=== PATIENT | male | born 1945 | race Caucasian/White ===

== ENCOUNTER 2018-02-27 15:01 | Emergency (ER) | payer MEDICARE, BC ==
[2018-02-27] MEDS: IPRATROPIUM 0.5MG/ALBUTEROL 2.5MG INH SOL UD 3ML (DUONEB)(J7620) NEB (16:29)
[2018-02-27] MEDS: ASPIRIN 81 MG CHEW TABLET PO (16:35)
[2018-02-27 16:40] LABS: BASO % 0.3 % (0.0-1.0); EOS % 0.5 % (0.0-3.0); HEMATOCRIT 32.1 % (42.0-52.0); IMMATURE GRANULOCYTE % 0.3 % (0-3.0); LYMPH # 0.7 10^3/uL (1.5-4.5); LYMPH % 16.8 % (24.0-44.0); MEAN CORPUSCULAR HEMOGLOBIN 35.7 pg (27.0-33.0); MEAN CORPUSCULAR HGB CONC 34.3 g/dl (32.0-36.5); MEAN CORPUSCULAR VOLUME 104.2 fl (80.0-96.0); MONO # 0.5 10^3/uL (0.0-0.8); NEUTROPHILS # 2.6 10^3/uL (1.8-7.7); NEUTROPHILS % 68.1 % (36.0-66.0); RED BLOOD COUNT 3.08 10^6/uL (4.30-6.10); RED CELL DISTRIBUTION WIDTH 15.5 % (11.5-14.5); WHITE BLOOD COUNT 3.9 10^3/uL (4.0-10.0)
[2018-02-27 16:59] LABS: ANION GAP 8 MEQ/L (8-16); BLOOD UREA NITROGEN 19 MG/DL (7-18); CARBON DIOXIDE LEVEL 32 MEQ/L (21-32); CHLORIDE LEVEL 97 MEQ/L (98-107); CPK CREATINE PHOSPHOKINASE 153 U/L (39-308); CREATININE FOR GFR 1.34 MG/DL (0.70-1.30); GLOMERULAR FILTRATION RATE 55.9 (>42); GLUCOSE, FASTING 309 MG/DL (70-100); POTASSIUM SERUM 3.7 MEQ/L (3.5-5.1); SODIUM LEVEL 137 MEQ/L (136-145); TROPONIN I 0.09 NG/ML (< 0.10)
[2018-02-27 17:00] LABS: CK-MB VALUE MASS 1.7 NG/ML (<3.6); MB/CK RELATIVE INDEX 1.11 (< OR =4)
[2018-02-27 17:10] LABS: IMMATURE PLATELET FRACTION % 5.2 % (0.0-10.9); PLATELET COUNT, AUTOMATED 45 10^3/uL (150-450)
== END 2018-02-27 17:41 | disposition home or self-care (01) ==
LOC: M ED 15:01
DX: J44.1 Chronic obstructive pulmonary disease with (acute) exacerbation (principal); I48.91 Unspecified atrial fibrillation; E11.9 Type 2 diabetes mellitus without complications; I10 Essential (primary) hypertension; Z87.891 Personal history of nicotine dependence; Z79.899 Other long term (current) drug therapy; Z79.51 Long term (current) use of inhaled steroids; Z79.4 Long term (current) use of insulin; Z79.01 Long term (current) use of anticoagulants
CPT/HCPCS: 71045

== ENCOUNTER 2021-03-12 07:05 | Inpatient (IN) | payer MEDICARE ==
[~2021-03-12] VITALS: Ht 180.3 cm; Wt 114.4 kg
[2021-03-12] MEDS: NYSTATIN 100,000 UNITS/GM TOPICAL PWD 15 GM TOP SCH (02:00)
[~2021-03-12 07:05] MED LIST: CORE6.25 PO; ELIQ5TAB PO; FLOM0.4C39 PO; FOLI1TAB11 PO; INSUDET SC; LASI40TA9 PO; MULTCAP PO; SALMDISK INH; TIOT18INH INH; VITA80003 PO; VITAMIN B 1 PO
[2021-03-12 07:42] LABS: BASO % 0.1 % (0.0-1.0); EOS % 0.3 % (0.0-3.0); HEMATOCRIT 30.1 % (42.0-52.0); HEMOGLOBIN 9.8 g/dl (13.5-17.5); LYMPH # 0.4 10^3/uL (1.5-5.0); LYMPH % 4.7 % (24.0-44.0); MEAN CORPUSCULAR HEMOGLOBIN 36.3 pg (27.0-33.0); MEAN CORPUSCULAR HGB CONC 32.6 g/dl (32.0-36.5); MEAN CORPUSCULAR VOLUME 111.5 fl (80.0-96.0); MONO # 0.7 10^3/uL (0.0-0.8); MONO % 9.5 % (2.0-8.0); NEUTROPHILS # 6.4 10^3/uL (1.5-8.5); NEUTROPHILS % 84.7 % (36.0-66.0); WHITE BLOOD COUNT 7.6 10^3/uL (4.0-10.0)
[2021-03-12] MEDS ORDERED: ACETAMINOPHEN 325 MG TAB PO ONE ×2 (08:00→12:05)
[2021-03-12 08:06] LABS: PLATELET COUNT, AUTOMATED 52 10^3/uL (150-450)
[2021-03-12 08:18] LABS: ALBUMIN 3.4 GM/DL (3.2-5.2); BILIRUBIN,DIRECT 0.4 MG/DL (0.0-0.2); BILIRUBIN,TOTAL 0.9 MG/DL (0.2-1.0); CK-MB VALUE MASS 6.9 NG/ML (<3.6); MB/CK RELATIVE INDEX 0.69 (< OR =4); THYROID STIMULATING HORMONE 0.904 uIU/ML (0.358-3.740); TOTAL PROTEIN 6.9 GM/DL (6.4-8.2); TROPONIN I 0.16 NG/ML (< 0.10)
--- NOTE | 2021-03-12 08:22 | REP ---
INDICATION: TRAUMA. COMPARISON: AP 02/27/2018. TECHNIQUE: AP portable upright FINDINGS: Lungs are less well inflated than the prior exam. There is now a multilead pacer device with leads in the right atrium, right ventricle and an epicardial lead. Cardiac silhouette enlarged but further exaggerated by degree of inflation lordotic projection. Some venous hypertension without leslie edema. No definite infiltrate or effusion although the right CP angle is excluded. Some rotation toward the right side limits evaluation of the mediastinum. Some degenerative changes throughout the spine. IMPRESSION: 1. Multilead pacer as described with cardiac silhouette enlarged and some venous hypertension without leslie edema definite effusion or infiltrate. Limited portable exam as described above. <Electronically signed by Basilio Avila > 03/12/21 0811
--- NOTE | 2021-03-12 08:22 | ECGEPIP ---
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
[2021-03-12 09:14] LABS: RSV AMPLIFICATION NEGATIVE (NEGATIVE)
--- NOTE | 2021-03-12 10:36 | REP ---
INDICATION: FUO. COMPARISON: AP chest 03/12/2021, 02/27/2018. TECHNIQUE: Noncontrast CT through the chest with coronal and sagittal reconstructions. FINDINGS: Exam somewhat limited with patient inability to follow instructions and breath hold. Lung [place]jo are well inflated. There is dependent atelectasis deep sulcus right greater than left lower lobe. Some mild the pleural thickening posteriorly in the deep sulcus on the right no gross effusion. Some minor linear atelectatic change in the left base just above the diaphragm. There is a patchy a zone of the infiltrate in left mid lung zone not visible on the portable chest this date even in retrospect. It has a maximum diameter of 19 mm. There is a subtle patchy density measuring about 9 mm in the right upper lobe subpleural region best seen on image 35 another 8 mm focus on image 44 in the right lobe similar patchy density no pleural based mass noted the heart is enlarged with left atrial and ventricular enlargement. There has been aortic valve surgery and a multilead pacer leads in the right atrium right ventricle and epicardial lead are noted as on radiograph some mild dilatation of the ascending aorta up to 4.2 cm not considered aneurysmal. Atherosclerotic calcifications of the arch and proximal great vessels lobes well as descending aorta noted without aneurysm. There is a small left-sided pericardial effusion up to [address] attenuation 10 - 13 HU. Bone windows show marginal osteophytes throughout thoracic spine with some mild kyphosis upper thoracic region endplate depression Schmorl's node at T11 superiorly. No definite acute bony finding in the spine. The cervicothoracic junction and lower thoracic vertebral levels also show spondylosis. The visualized ribs sternum, manubrium, medial clavicles, portion of scapula visualized and the left humeral head show degenerative changes but no destructive lesion or fracture. No definite hiatal hernia. Chest wall soft tissues unremarkable. Please see CT abdomen for discussion of findings in the upper abdomen on this study. IMPRESSION: 1. Cardiomegaly with left atrial and ventricular enlargement, a small pericardial effusion up to 10 mm in thickness and aortic valve surgery with the mild the dilatation of the ascending aorta up to 4.2 cm AP diameter. Some atherosclerotic calcifications aorta at the arch and descending portion without aneurysm. 2. Multilead pacer with leads in the right atrium, right ventricle and an epicardial lead. No pathologic sized mediastinal hilar axillary or supraclavicular lymphadenopathy. 3. Dependent atelectatic changes and some pleural thickening subpleural atelectasis deep sulcus right lower lobe and with patchy densities or infiltrates in the left upper lobe up to 19 mm size and at least 2 in the right upper lobe at 9 and 6 mm respectively. These should be followed. 4. Diffuse degenerative changes in the spine without acute compression deformity. No destructive lesions in the visualized bony chest. <Electronically signed by Basilio Avila > 03/12/21 [id number]
--- NOTE | 2021-03-12 10:50 | REP ---
INDICATION: FUO, Hx of psoas abscess 2018. COMPARISON: CT chest this date TECHNIQUE: Noncontrast abdominopelvic CT with coronal and sagittal reconstructions. FINDINGS: CT abdomen: There is no hiatal hernia. Stomach gas filled without wall thickening or mass. There is splenomegaly with spleen measuring 16.7 x 12.7 x 5.6 cm giving a splenic index of 1181. No focal splenic lesion. There is also mildly enlarged measuring 19.5 cm in vertical diameter midclavicular line. There is some lobulated contour and prominence of the left hepatic lobe. Attenuation is homogeneous. There dependent calcified stones and sludge in the gallbladder. No intra or extrahepatic biliary dilatation. The pancreas grossly intact. Adrenal glands grossly normal. There is some sinus lipomatosis in the kidneys. There is a lower pole calcification in a pyramid in the right kidney about 4 mm. No definite hydronephrosis, hydroureter or ureteral stone identified. Small bowel loops grossly intact without dilatation or inflammatory change. There is atherosclerotic calcification of the left colon without signs of diverticulitis. Transverse and proximal left colon are collapsed and wall thickness difficult to evaluate, cannot see definite signs of colitis. Lung window review of all CT slices shows no perforation or free air in the abdomen or pelvis. Appendix is seen and normal. The aorta has atherosclerotic calcifications without aneurysm. There is no pathologic sized periaortic, other retroperitoneal or mesenteric lymphadenopathy nodes in the 3-6 mm range are seen but scattered. No masses. No ascites. The bone windows show prior lumbar fusion with pedicle screws at L4-L5 and disc fusion at L3-4 complete disc space narrowing at the L4-5 and L5-S1 less at levels above but with diffuse marginal osteophytes throughout the lower thoracic and lumbar region. Patient has had a total left hip arthroplasty with alignment of the components in relationship to each other and the [place] bone intact. Right hip with degenerative changes but no fracture sacrum without fracture with degenerative the changes at the SI joints sacral ala, iliac bones, acetabulae and ischia without acute fracture. CT pelvis atherosclerotic calcifications in the iliac vessels into the common femoral arteries noted no ventral or inguinal hernia nor pathologic sized inguinal adenopathy. Prostate with a few calcifications from prior inflammatory disease distal left colon with diverticulosis but no diverticulitis. Appear to be some minor inflammatory adjacent to the proximal sigmoid near its junction of the distal left colon a could reflect some mild diverticulitis. No evidence for perforation or abscess. No pelvic free fluid. Bladder without stone mass or wall thickening. Somewhat limited evaluation due to the metallic artifact from hip arthroplasty IMPRESSION: 1. Inflammatory changes in the pericolonic fat adjacent to the proximal sigmoid near the junction with distal left colon that may reflect diverticulitis no diverticular abscess perforation ascites or free air. Proximal and mid left colon without inflammatory changes but with some diverticulosis. 2. Hepatosplenomegaly as described, no focal lesion. 3. Dependent calcified stones and sludge in the gallbladder without intra or extrahepatic biliary dilatation. Some respiratory motion blur limits evaluation of some of organs but small bowel loops, pancreas and stomach unremarkable. Adrenal glands intact. 4. Kidneys with a solitary stone in the lower pole pyramid on the right with no hydronephrosis or renal mass. Atherosclerotic calcifications aorta without aneurysm. Prior lumbar fusion at L4-5. <Electronically signed by Basilio Avila > 03/12/21 104
[2021-03-12] MEDS ORDERED: FINA5TAB2 PO (10:53)
[2021-03-12] MEDS ORDERED: ENTR1TAB7 PO (10:53)
[2021-03-12] MEDS ORDERED: CARDCAP3 PO (10:53)
[2021-03-12] MEDS ORDERED: METO1TAB32 PO (10:53)
[2021-03-12] MEDS ORDERED: KLOR20TA42 PO (10:53)
[2021-03-12] MEDS ORDERED: BUDE10.2 INH (10:53)
[2021-03-12] MEDS ORDERED: ACET-683 PO (10:53)
[2021-03-12] MEDS ORDERED: ASPI81CH33 PO (10:53)
[2021-03-12] MEDS ORDERED: ALLO100T PO (10:53)
[2021-03-12] MEDS ORDERED: METO25TA PO (10:53)
[2021-03-12] MEDS ORDERED: PROAAER10 INH (10:54)
[2021-03-12] MEDS ORDERED: SIME80CH5 PO (10:54)
[2021-03-12] MEDS ORDERED: TERA10CA3 PO (10:54)
[2021-03-12] MEDS ORDERED: IPRA2IN NEB (10:54)
[2021-03-12] MEDS ORDERED: MIRT1TAB16 PO (10:54)
[2021-03-12] MEDS ORDERED: TRAM50TA2 PO (10:54)
[2021-03-12 12:23] LABS: C REACTIVE PROTEIN QUANTITATIV 1.98 MG/DL (0.00-0.30)
[2021-03-12] MEDS ORDERED: metroNIDAZOLE 500 MG in IV 1 EA IV ONE (13:25)
[2021-03-12] MEDS ORDERED: CEFEPIME HCL 2 GM in D5W MINI-BAG PLUS 50 ML IV ONE (13:25)
--- NOTE | 2021-03-12 14:22 | ECHO ---
ECHOCARDIOGRAM DATE OF PROCEDURE: 03/12/2021 Age: 75 Gender: Male Height: 180 cm. Weight: 114 kg. REFERRING PHYSICIAN: Greg Cruz M.D. INDICATION: Suspicion for endocarditis; history of aortic valve replacement. MEASUREMENTS: IV 1.1 cm LV 5.1 cm LVPW 1.2 cm LA 3.6 cm Left atrium volume index 44 ml/m2 IVC 2.3 cm FINDINGS: The study is of fair technical quality with fair visualization. I am not certain what is the underlying rhythm. It does not appear to be sinus, but it was completely regular with heart rate 81 beats per minute throughout the whole study. Left ventricle is normal size. There is septal wall motion abnormality. I suspect due to underlying pacing. But overall ejection fraction is preserved and I estimate it around 60-65%. Right ventricle appears normal size. Left atrium is severely enlarged, right atrium is at least mildly enlarged. Aortic valve is bioprosthetic and was poorly seen. There are degenerative abnormalities of mitral valve with mitral annular calcifications, but mobility is preserved. Trace insufficiency is seen by color flow imaging. There is also trace tricuspid insufficiency. Pulmonic valve was not well seen. No pericardial effusion is noted. Inferior vena cava is dilated. There is no appreciable collapse with inspiration indicative of very high central venous pressure. Aortic root is normal. Aortic arch and abdominal aorta were not well seen. There is an echo artifact in right-sided heart chambers corresponding to pacemaker lead. DOPPLER EVALUATION: There is no significant aortic stenosis (mean gradient 13 mmHg) and no insufficiency of the valve. Mitral valve is functionally competent. Trace TR is seen, calculated pulmonary artery pressure is 30-35 mmHg corresponding to mild pulmonary hypertension. Evaluation of diastolic function is inconclusive due to absence of sinus rhythm. CONCLUSIONS: 1. Study is of fair technical quality. Uncertain atrial rhythm with ventricular pacing. 2. Normal left ventricular (LV) size with mild left ventricular hypertrophy (LVH) and preserved LV systolic function. Septal wall motion abnormality likely due to underlying pacing. 3. Bioprosthetic valve in aortic position with no visible vegetation, trivial stenosis (mean gradient 13 mmHg) and no insufficiency. 4. No additional significant valvular disease. 5. High central venous pressure and at least mild pulmonary hypertension. 6. Pacemaker by artifact apparent in right-sided heart chambers. COMMENTS: Results of the study were discussed with Dr. Cruz. TICO
--- NOTE | 2021-03-12 15:26 | HPEPDOC ---
General Date of Admission 03/12/21 Date of Service: Mar 12, 2021 Chief Complaint The patient is a 75-year-old male admitted with a reason for visit of Weakness. Source: Patient, Family Exam Limitations: No limitations History of Present Illness Patient is 75 years old male with past medical history of hypertension, aortic valve replacement, type 2 diabetes, thrombocytopenia, atrial fibrillation, pacemaker presented to hospital with fever and chills. According to his patient developed generalized weakness with fever yesterday night associated with rigors and abdominal pain. Patient reported abdominal pain in the left lower quadrant. He denies any diarrhea or dysuria. Patient did not have nausea or vomiting. In ER patient was found fever over 101.2 elevated lactic acid of 2.8, leukocytes count 7.6, sedimentation rate of 58, platelet count of 52, CPK 999, creatinine 3, troponin 0.16, BNP 1433. Echo was done and showed ejection fraction of 60 to 65%, no vegetations, high central venous pressure. CT chest showed Cardiomegaly with left atrial and ventricular enlargement, a small pericardial effusion up to 10 mm in thickness and aortic valve surgery with the mild the dilatation of the ascending aorta up to 4.2 cm AP diameter, CT abdomen pelvis showed Inflammatory changes in the pericolonic fat adjacent to the proximal sigmoid near the junction with distal left colon that may reflect diverticulitis no diverticular abscess perforation ascites or free air Home Medications Scheduled Allopurinol (Allopurinol) 100 Mg Tablet, 100 MG PO DAILY, (Reported) Apixaban (Eliquis) 2.5 Mg Tablet, 2.5 MG PO BID, (Reported) Budesonide/Glycopyr/Formoterol (Breztri Aerosphere Inhaler) 160 Mcg-9 Mcg-4.8 Mcg/Actuation Hfa.aer.ad, 1 PUFF INH BID, (Reported) Finasteride (Finasteride) 5 Mg Tablet, 5 MG PO DAILY, (Reported) Folic Acid (Folic Acid) 1 Mg Tab, 1 MG PO DAILY, (Reported) Furosemide (Furosemide) 80 Mg Tablet, 80 MG PO BID, (Reported) Gabapentin (Gabapentin) 400 Mg Capsule, 400 MG PO BID, (Reported) Metolazone (Metolazone) 2.5 Mg Tablet, 2.5 MG PO 1XWK, (Reported) FRIDAYS Metoprolol Succinate (Metoprolol Succinate) 25 Mg Tab.er.24h, 75 MG PO DAILY, (Reported) Mirtazapine (Mirtazapine) 15 Mg Tab.rapdis, 15 MG PO QHS, (Reported) Mv-Min/Folic/Vit K/Lycop/Coq10 (Daily Multivitamin Capsule) 1 Each Capsule, 1 CAP PO DAILY, (Reported) Potassium Chloride (Potassium Chloride) 20 Meq Tab.er.prt, 10 MEQ PO DAILY, (Reported) Sacubitril/Valsartan (Entresto 49 mg-51 mg Tablet) 1 Each Tablet, 1 TAB PO BID, (Reported) Terazosin Hcl (Terazosin HCl) 10 Mg Capsule, 20 MG PO DAILY, (Reported) Scheduled PRN Acetaminophen (Acetaminophen) 500 Mg Tablet, 1,000 MG PO TID PRN for PAIN LEVEL 1-6, (Reported) Albuterol Sulfate (Proair Hfa) 8.5 Gm Hfa.aer.ad, 2 PUFF INH Q4H PRN for SOB/WHEEZING, (Reported) Ipratropium/Albuterol Sulfate (Iprat-Albut 0.5-3(2.5) mg/3 ml) 3 Ml Ampul.neb, 1 VIAL NEB QID PRN for SOB/WHEEZING, (Reported) Simethicone (Simethicone) 80 Mg Tab.chew, 80 MG PO Q6H PRN for GAS PAIN, (Reported) Tramadol HCl (Tramadol HCl) 50 Mg Tablet, 50 MG PO BID PRN for PAIN LEVEL 5-10, (Reported) Allergies Coded Allergies: No Known Allergies (Unverified , 02/27/18) Past Medical History Medical History COPD with emphysema, hypertension, type 2 diabetes, thrombocytopenia, aortic valve replacement, atrial fibrillation, pacemaker placement, cirrhosis, cardiomyopathy, gout, nephrolithiasis, portal hypertension, spinal stenosis, splenomegaly, thoracic aortic aneurysm Surgical History Aortic valve replacement in 2013, pacemaker placement, hip joint replacement left, rotator cuff repair right Family History I personally reviewed family history and found not pertinent Social History * Smoker: Denies Alcohol: occationally Drugs: denies A-FIB/CHADSVASC A-FIB History Current/History of A-Fib/PAF?: Yes Current PO Anticoag Therapy: Yes Review of Systems Constitutional: Reports: Chills, Fever Eyes: Denies: Pain ENT: Denies: Head Aches Skin: Denies: Rash Pulmonary: Denies: Dyspnea Cardiovascular: Denies: Chest Pain Gastrointestinal: Reports: Abdominal Pain Genitourinary: Denies: Dysuria, Frequency Hematologic: Reports: Bruising Endocrine: Denies: Polydipsia Musculoskeletal: Denies: Neck Pain Neurological: Denies: Weakness Psych: Reports: Mood Normal Physical Examination General Exam: Positive: Alert, Cooperative Eye Exam: Positive: PERRLA ENT Exam: Positive: Atraumatic Neck Exam: Positive: Supple, JVD Chest Exam: Positive: Diminished Heart Exam: Positive: Irregular Rhythm Telemetry: Positive: Atrial fibrillation Abdomen Exam: Positive: Tenderness (Left lower quadrant) Extremity Exam: Positive: Edema (+2); Negative: Clubbing Skin Exam: Positive: Nl turgor and temperature Neuro Exam: Positive: Cranial Nerves 3-12 NL Psych Exam: Positive: Mental status NL Vital Signs Vital Signs Date Time Temp Pulse Resp B/P (MAP) Pulse Ox O2 Delivery O2 Flow Rate FiO2 03/12/21 13:26 99.9 03/12/21 13:20 80 96 Room Air 03/12/21 13:15 113/58 (76) 03/12/21 11:50 24 2.0 Laboratory Data Labs 24H Laboratory Tests 2 03/12/21 07:23: Erythrocyte Sedimentation Rate 58H 03/12/21 07:26: Immature Granulocyte % (Auto) 0.7, Neutrophils (%) (Auto) 84.7H, Lymphocytes (%) (Auto) 4.7L, Monocytes (%) (Auto) 9.5H, Eosinophils (%) (Auto) 0.3, Basophils (%) (Auto) 0.1, Neutrophils # (Auto) 6.4, Lymphocytes # (Auto) 0.4L, Monocytes # (Auto) 0.7, Eosinophils # (Auto) 0.0, Basophils # (Auto) 0.0, Nucleated Red Blood Cells % (auto) 0.0, Immature Platelet Fraction 4.7, Lactic Acid Level 2.8*H, Total Bilirubin 0.9, Direct Bilirubin 0.4H, Aspartate Amino Transf (AST/SGOT) 44H, Alanine Aminotransferase (ALT/SGPT) 35, Alkaline Phosphatase 71, Total Creatine Kinase 999H, Creatine Kinase MB 6.9H, Creatine Kinase MB Relative Index 0.69, Troponin I 0.16H, C-Reactive Protein, Quantitative 1.98H, WQ-Tmd-W-Type Natriuretic Peptide 1433H, Total Protein 6.9, Albumin 3.4, Albumin/Globulin Ratio 1.0, Lipase 120, Thyroid Stimulating Hormone (TSH) 0.904 03/12/21 07:36: POC Glucose (Misc Panel) 291H, POC Sodium (Misc Panel) 138, POC Potassium (Misc Panel) 5.0, POC Chloride (Misc Panel) 100, POC Total CO2 (Misc Panel) 24.0, POC Blood Urea Nitrogen (Misc Panel 81H, POC Ionized Calcium (Misc Panel) 5.0, POC Creatinine (Misc Panel) 3.0H, POC Hematocrit (Misc Panel) 30.0L 03/12/21 08:13: Urine Color YELLOW, Urine Appearance CLEAR, Urine pH 5.0, Urine Specific [place] 1.014, Urine Protein NEGATIVE, Urine Glucose (UA) 1+H, Urine Ketones NEGATIVE, Urine Blood 2+H, Urine Nitrite NEGATIVE, Urine Bilirubin NEGATIVE, Urine Urobilinogen 0.2, Urine Leukocyte Esterase NEGATIVE, Urine WBC (Auto) 0, Urine RBC (Auto) 4H, Urine Hyaline Casts (Auto) 6, Urine Bacteria (Auto) 1+H, Urine Squamous Epithelial Cells 0, Urine Sperm (Auto) , Coronavirus (COVID-19)(PCR) NEGATIVE, Influenza Type A (RT-PCR) NEGATIVE, Influenza Type B (RT-PCR) NEGATIVE, Respiratory Syncytial Virus (PCR) NEGATIVE CBC/BMP Laboratory Tests 03/12/21 07:26 Microbiology Microbiology 03/12/21 Blood Culture, Received Pending 03/12/21 Blood Culture, Received Pending Assessment/Plan Patient is 75 years old male with past medical history of hypertension, aortic valve replacement, type 2 diabetes, thrombocytopenia, atrial fibrillation, pacemaker presented to hospital with fever and chills. According to his patient developed generalized weakness with fever yesterday night associated with rigors and abdominal pain. Patient reported abdominal pain in the left lower quadrant. He denies any diarrhea or dysuria. Patient did not have nausea or vomiting. In ER patient was found fever over 101.2 elevated lactic acid of 2.8, leukocytes count 7.6, sedimentation rate of 58, platelet count of 52, CPK 999, creatinine 3, troponin 0.16, BNP 1433. Echo was done and showed ejection fraction of 60 to 65%, no vegetations, high central venous pressure. CT chest showed Cardiomegaly with left atrial and ventricular enlargement, a small pericardial effusion up to 10 mm in thickness and aortic valve surgery with the mild the dilatation of the ascending aorta up to 4.2 cm AP diameter, CT abdomen pelvis showed Inflammatory changes in the pericolonic fat adjacent to the proximal sigmoid near the junction with distal left colon that may reflect diverticulitis no diverticular abscess perforation ascites or free air Problems (1) Acute diverticulitis Status: Acute Problem Text: Patient has fever, left lower quadrant abdominal pain, CT shows picture consistent with acute diverticulitis Zosyn IV Pain management Clear liquid diet for now (2) COPD (chronic obstructive pulmonary disease) Status: Chronic Problem Text: Not in acute exacerbation Continue inhalers (3) Thrombocytopenia Status: Chronic Problem Text: Most likely secondary to liver cirrhosis Continue to monitor (4) Cirrhosis of liver Status: Chronic Problem Text: Follow-up with GI team in the outpatient settings (5) Acute diastolic CHF (congestive heart failure) Status: Acute Problem Text: BNP elevated, CT shows cardiomegaly, on the physical exam patient volume overloaded with lower extremity edema Echo showed Normal left ventricular (LV) size with mild left ventricular hypertrophy (LVH) and preserved LV systolic function. Septal wall motion abnormality likely due to underlying pacing. overall ejection fraction is preserved and it around 60-65%. IV Lasix I's and O's (6) Thoracic aortic aneurysm Status: Chronic Problem Text: Follow-up with ultrasound every 6 months (7) Type 2 diabetes mellitus Status: Chronic Problem Text: Insulin sliding scale We will check HbA1c Plan / VTE VTE Prophylaxis Ordered?: Yes REGLA JONES DO Mar 12, 2021 15:26
[2021-03-12] MEDS ORDERED: PIPERACILLIN/TAZOBACTAM SOD 3.375 GM in D5W MINI-BAG PLUS 50 ML IV SCH (15:30)
[2021-03-12] MEDS ORDERED: DEXTROSE 50% 50 ML SYRINGE IV PRN (15:45)
[2021-03-12] MEDS ORDERED: GLUCOSE 4GM CHEW TABLET PO PRN (15:45)
[2021-03-12] MEDS ORDERED: GLUCAGON INJ 1MG VIAL SC PRN (15:45)
[2021-03-12] MEDS ORDERED: FURO80TA2 PO (15:56)
[2021-03-12] MEDS ORDERED: BUDE10.7 INH (15:56)
[2021-03-12] MEDS ORDERED: IPRA0.00 NEB (15:56)
[2021-03-12] MEDS ORDERED: GABA-283 PO (15:56)
[2021-03-12] MEDS ORDERED: ELIQ2.5T PO (15:56)
[2021-03-12] MEDS ORDERED: MIRT1TAB15 PO (15:56)
[2021-03-12] MEDS ORDERED: POTA20TA6 PO (15:56)
[2021-03-12] MEDS ORDERED: ALBUTEROL 90 MCG/ACT 8GM HFA INHALER INH PRN (16:00)
[2021-03-12 16:28] LABS: HEMOGLOBIN A1c 7.1 %
[2021-03-12] MEDS: TERAZOSIN 5MG CAPSULE PO SCH (17:13)
[2021-03-12 17:55] VITALS: BP 116/57
[2021-03-12] MEDS: allopurinoL 100 MG TAB PO SCH (19:08)
[2021-03-12] MEDS: FOLIC ACID 1 MG TAB PO SCH (19:08)
[2021-03-12] MEDS: FINASTERIDE 5 MG TAB PO SCH (19:11)
[2021-03-12] MEDS: METOPROLOL SUCC *XL* 25MG TAB (TopROL *XL*) PO SCH (19:12)
[2021-03-12] MEDS: POTASSIUM CHLORIDE 10 MEQ SR TABLET PO SCH (19:13)
[2021-03-12] MEDS: HumaLOG INSULIN (NovoLOG) PER UNIT SC SCH ×2 (19:14→21:00)
[2021-03-12] MEDS: PIPERACILLIN/TAZOBACTAM SOD 3.375 GM in D5W MINI-BAG PLUS 50 ML IV SCH ×2 (19:15→23:31)
[2021-03-12] MEDS: ONDANSETRON 4MG/2ML VIAL IV PRN (19:47)
[2021-03-12] MEDS ORDERED: VANCOMYCIN HCL 1,000 MG, VIAL MATE ADAPTER 1 EACH in NS 250 ML IV ONE (20:30)
[2021-03-12 22:00] VITALS: BP 120/58
[2021-03-12] MEDS ORDERED: VANCOMYCIN HCL 1,000 MG, VIAL MATE ADAPTER 1 EACH in NS 250 ML IV SCH (22:00)
[2021-03-12] MEDS: ENTRESTO 49-51MG TABLET (SACUBITRIL/VALSARTAN) PO SCH (22:07)
[2021-03-12] MEDS: MIRTAZAPINE 15 MG TAB PO SCH (22:07)
[2021-03-12] MEDS: FUROSEMIDE 40MG/4ML VIAL (J1940) IV SCH (22:07)
[2021-03-12] MEDS: APIXABAN 2.5 MG TAB (ELIQUIS) PO SCH (22:08)
[2021-03-13] MEDS: ONDANSETRON 4MG/2ML VIAL IV PRN ×2 (00:37→08:05)
[2021-03-13] MEDS: ACETAMINOPHEN TAB 650MG DOSE (2X325MG) PO PRN ×2 (00:38→20:47)
[2021-03-13] MEDS ORDERED: METOCLOPRAMIDE INJ 10MG/2ML VIAL (J2765 PER 1) IV ONE (04:40)
[2021-03-13] MEDS: PIPERACILLIN/TAZOBACTAM SOD 3.375 GM in D5W MINI-BAG PLUS 50 ML IV SCH ×4 (05:25→23:28)
[2021-03-13 06:00] VITALS: BP 116/56
[2021-03-13 06:15] LABS: HEMOGLOBIN 9.5 g/dl (13.5-17.5); MEAN CORPUSCULAR HGB CONC 32.8 g/dl (32.0-36.5); MEAN CORPUSCULAR VOLUME 109.8 fl (80.0-96.0); RED BLOOD COUNT 2.64 10^6/uL (4.30-6.10); WHITE BLOOD COUNT 5.8 10^3/uL (4.0-10.0)
[2021-03-13 06:16] LABS: PLATELET COUNT, AUTOMATED 44 10^3/uL (150-450)
[2021-03-13 06:40] LABS: ALBUMIN 2.9 GM/DL (3.2-5.2); ALT/SGPT 81 U/L (12-78); BLOOD UREA NITROGEN 71 MG/DL (7-18); CALCIUM LEVEL 8.8 MG/DL (8.8-10.2); CARBON DIOXIDE LEVEL 27 MEQ/L (21-32); CHLORIDE LEVEL 106 MEQ/L (98-107); CREATININE FOR GFR 2.86 MG/DL (0.70-1.30); GLOMERULAR FILTRATION RATE 23.1 (>42); GLUCOSE, FASTING 177 MG/DL (70-100); MAGNESIUM LEVEL 2.1 MG/DL (1.8-2.4); POTASSIUM SERUM 4.4 MEQ/L (3.5-5.1); SODIUM LEVEL 142 MEQ/L (136-145); TOTAL PROTEIN 6.3 GM/DL (6.4-8.2)
[2021-03-13] MEDS ORDERED: VANCOMYCIN HCL 750 MG, VIAL MATE ADAPTER 1 EACH in NS 250 ML IV SCH (08:05)
[2021-03-13] MEDS: ENTRESTO 49-51MG TABLET (SACUBITRIL/VALSARTAN) PO SCH ×2 (08:07→20:48)
[2021-03-13] MEDS: FINASTERIDE 5 MG TAB PO SCH (08:07)
[2021-03-13] MEDS: allopurinoL 100 MG TAB PO SCH (08:07)
[2021-03-13] MEDS: FUROSEMIDE 40MG/4ML VIAL (J1940) IV SCH (08:07)
[2021-03-13] MEDS: APIXABAN 2.5 MG TAB (ELIQUIS) PO SCH ×2 (08:08→20:47)
[2021-03-13] MEDS: POTASSIUM CHLORIDE 10 MEQ SR TABLET PO SCH (08:08)
[2021-03-13] MEDS: FOLIC ACID 1 MG TAB PO SCH (08:08)
[2021-03-13] MEDS: NYSTATIN 100,000 UNITS/GM TOPICAL PWD 15 GM TOP SCH ×3 (08:10→20:48)
[2021-03-13] MEDS: HumaLOG INSULIN (NovoLOG) PER UNIT SC SCH ×4 (08:10→20:37)
[2021-03-13] MEDS: TERAZOSIN 5MG CAPSULE PO SCH (09:00)
[2021-03-13] MEDS: METOPROLOL SUCC *XL* 25MG TAB (TopROL *XL*) PO SCH ×2 (09:00→13:30)
[2021-03-13] MEDS ORDERED: SODIUM CHLORIDE 0.9% 1000ML IV SCH (12:50)
--- NOTE | 2021-03-13 13:13 | IPNPDOC ---
Text Note Date of Service The patient was seen on 03/13/21. NOTE Subjective: Patient developed nausea overnight. In the morning patient stated that he feels better. He reports with abdominal pain resolved. Objective: GENERAL APPEARANCE: Obese male HEENT: no scleral icterus, plus JVD, EOMI CARDIOVASCULAR: Irregularly irregular LUNGS: Diminished lung sounds bilaterally ABDOMEN: soft & not tender w palpitation MUSCULOSKELETAL: no cyanosis, +1 lower extremity edema INTEGUMENT: no generalized pallor NEUROLOGICAL: cranial nerve function from 2-12 intact intact, follows commands, speech not dysarthric Assessment/Plan Patient is 75 years old male with past medical history of hypertension, aortic valve replacement, type 2 diabetes, thrombocytopenia, atrial fibrillation, pacemaker presented to hospital with fever and chills. According to his patient developed generalized weakness with fever yesterday night associated with rigors and abdominal pain. Patient reported abdominal pain in the left lower quadrant. He denies any diarrhea or dysuria. Patient did not have nausea or vomiting. In ER patient was found fever over 101.2 elevated lactic acid of 2.8, leukocytes count 7.6, sedimentation rate of 58, platelet count of 52, CPK 999, creatinine 3, troponin 0.16, BNP 1433. Echo was done and showed ejection fraction of 60 to 65%, no vegetations, high central venous pressure. CT chest showed Cardiomegaly with left atrial and ventricular enlargement, a small pericardial effusion up to 10 mm in thickness and aortic valve surgery with the mild the dilatation of the ascending aorta up to 4.2 cm AP diameter, CT abdomen pelvis showed Inflammatory changes in the pericolonic fat adjacent to the proximal sigmoid near the junction with distal left colon that may reflect diverticulitis no diverticular abscess perforation ascites or free air Problems Acute diverticulitis/sepsis Patient had fever, left lower quadrant abdominal pain, CT shows picture consistent with acute diverticulitis. Abdominal pain resolved today Zosyn IV day 2 Pain management Upgraded diet to full liquid Blood culture came back positive for gram-positive cocci in chains and clusters. Procalcitonin elevated to 5.7. I will repeat blood culture. We will check MRSA, added vancomycin IV His lactic acid increased today to 2.5, I will stop diuresis and start IV fluid according to sepsis protocol. Will proceed with CASSIDY tomorrow COPD (chronic obstructive pulmonary disease) Not in acute exacerbation Continue inhalers Thrombocytopenia Most likely secondary to liver cirrhosis Continue to monitor Cirrhosis of liver Follow-up with GI team in the outpatient settings Acute diastolic CHF (congestive heart failure) BNP elevated, CT shows cardiomegaly Echo showed Normal left ventricular (LV) size with mild left ventricular hype rtrophy (LVH) and preserved LV systolic function. Septal wall motion abnormality likely due to underlying pacing. overall ejection fraction is preserved and it around 60-65%. Lasix on hold due to septic presentation I's and O's (6) Thoracic aortic aneurysm Follow-up with ultrasound every 6 months (7) Type 2 diabetes mellitus Continue insulin sliding scale HbA1c 7.1 Macrocytic anemia We will check B12, folate, iron studies VS,Fishbone, I+O VS, Fishbone, I+O Laboratory Tests 03/13/21 05:41 Vital Signs Date Time Temp Pulse Resp B/P (MAP) Pulse Ox O2 Delivery O2 Flow Rate FiO2 03/13/21 09:00 107/52 03/13/21 09:00 82 03/13/21 06:00 97.4 18 97 Nasal Cannula 2.0 I&O- Last 24 Hours up to 6 AM 03/13/21 06:00 Intake Total 1390 ml Output Total 800 ml Balance 590 ml REGLA JONES DO Mar 13, 2021 13:13
[2021-03-13] MEDS: traMADol 50 MG TAB PO PRN (13:43)
[2021-03-13 14:00] VITALS: BP 103/60
[2021-03-13] MEDS: NS 1,000 ML IV SCH ×2 (14:36→21:06)
[2021-03-13] MEDS ORDERED: NS 1,000 ML IV ONE (15:00)
[2021-03-13] MEDS: IPRATROPIUM 0.5MG/ALBUTEROL 2.5MG INH SOL UD 3ML (DUONEB) NEB PRN (15:15)
[2021-03-13 15:59] LABS: IRON (FE) 22 UG/DL (65-175); PERCENT SATURATION 8.7 % (19.7-50.0); TOTAL IRON BINDING CAPACITY 252 UG/DL (250-450)
[2021-03-13] MEDS: SYMBICORT 160/4.5MCG INHALER 6GM INH SCH ×2 (16:00→20:20)
[2021-03-13] MEDS ORDERED: VANCOMYCIN HCL 1,000 MG, VIAL MATE ADAPTER 1 EACH in NS 250 ML IV SCH (16:00)
--- NOTE | 2021-03-13 19:41 | ECGEPIP ---
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
[2021-03-13] MEDS: MIRTAZAPINE 15 MG TAB PO SCH (20:47)
[2021-03-13 22:00] VITALS: BP_SYST 102; BP_SYST 65; BP_DIAS 65
[2021-03-14] MEDS: PIPERACILLIN/TAZOBACTAM SOD 3.375 GM in D5W MINI-BAG PLUS 50 ML IV SCH ×3 (04:53→17:17)
[2021-03-14] MEDS: NS 1,000 ML IV SCH (05:07)
[2021-03-14 06:00] VITALS: BP 106/67
[2021-03-14 06:19] LABS: BASO % 0.2 % (0.0-1.0); EOS # 0.1 10^3/uL (0.0-0.5); EOS % 1.8 % (0.0-3.0); HEMATOCRIT 26.1 % (42.0-52.0); HEMOGLOBIN 8.5 g/dl (13.5-17.5); LYMPH # 0.7 10^3/uL (1.5-5.0); LYMPH % 14.5 % (24.0-44.0); MEAN CORPUSCULAR HEMOGLOBIN 36.5 pg (27.0-33.0); MEAN CORPUSCULAR HGB CONC 32.6 g/dl (32.0-36.5); MONO # 0.6 10^3/uL (0.0-0.8); MONO % 13.7 % (2.0-8.0); NEUTROPHILS # 3.2 10^3/uL (1.5-8.5); NEUTROPHILS % 69.4 % (36.0-66.0); RED BLOOD COUNT 2.33 10^6/uL (4.30-6.10); WHITE BLOOD COUNT 4.5 10^3/uL (4.0-10.0)
[2021-03-14 06:23] LABS: PLATELET COUNT, AUTOMATED 42 10^3/uL (150-450)
[2021-03-14 06:46] LABS: ALBUMIN 2.4 GM/DL (3.2-5.2); BILIRUBIN,TOTAL 0.7 MG/DL (0.2-1.0); CALCIUM LEVEL 7.8 MG/DL (8.8-10.2); CREATININE FOR GFR 1.97 MG/DL (0.70-1.30); GLOMERULAR FILTRATION RATE 35.6 (>42); MAGNESIUM LEVEL 1.9 MG/DL (1.8-2.4); TOTAL PROTEIN 5.7 GM/DL (6.4-8.2)
[2021-03-14 07:15] VITALS: BP 104/68
[2021-03-14] MEDS: SYMBICORT 160/4.5MCG INHALER 6GM INH SCH ×2 (07:43→19:55)
--- NOTE | 2021-03-14 08:51 | IPN ---
PROGRESS NOTE DATE: 03/14/2021 SUBJECTIVE: I was asked by Dr. Callejas to perform a transesophageal echocardiogram on Mr. Palomo because he presented with fever, chills, diverticulitis and is growing enterococcus from blood cultures. I met with the patient, explained to him the rationale for the procedure. It turns out he had a transesophageal echocardiogram less than two months ago at [facility] in preparation for Watchman placement, so consequently is well familiar with the nature of it. I answered all his questions. PHYSICAL EXAMINATION: He appears to be in no distress. He is alert and oriented, does complain about back pain which has been chronic and also complains about abdominal pain. He denies any chest pain. Shortness of breath is minimal. Vital signs this morning: Blood pressure was 106/67, heart rate 60s to 80s. He is currently afebrile. Saturation 92% on 2 liters of oxygen. JVP does not appear high. Lungs are reasonably clear with fair air movement. Heart exam reveals a regular rhythm with frequent ectopy. I do appreciate only a very faint murmur of the aortic valve systolic. I do not appreciate any diastolic murmur. There is a pacemaker in the left subclavian pocket. Abdomen is tender, mildly distended. I do not appreciate guarding. Extremities have about 1+ edema. Stasis dermatitis changes. Neurologically, he is alert and oriented, and appropriate. LABORATORY DATA: As of this morning, sodium 144, potassium 4.0, BUN 40, creatinine 2, glucose 164. AST was 300, ALT 71, albumin 2.4. CBC: WBC count 4.5, hemoglobin 9.5, hematocrit 26 and platelet count is 42,000. Urinalysis is positive for blood and glucose. ASSESSMENT AND PLAN: Mr. Palomo is a 75-year-old man who has a history of paroxysmal atrial fibrillation, sick sinus syndrome with pacemaker and history of aortic valve replacement with bioprosthesis several years ago. He presented with fairly acute onset of illness characterized by abdominal pain, fever and chills and is growing enterococcus from the bloodstream. Clinically, this is much more likely to be diverticulitis than endocarditis mostly because of brief illness. I am going to wait for a transesophageal echocardiogram for at least a couple more days. His platelet count is still dropping and I think it will be safer to proceed with the procedure after he has a couple of more days of antibiotics in him. That certainly will not change immediate management. I still got appropriate consent from the patient. I tentatively plan to perform the procedure later this week.
[2021-03-14] MEDS ORDERED: **UNRESOLVED NON-FORMULARY MED ORDER XX SCH (09:00)
[2021-03-14] MEDS: allopurinoL 100 MG TAB PO SCH (09:12)
[2021-03-14] MEDS: TERAZOSIN 5MG CAPSULE PO SCH ×2 (09:12→09:41)
[2021-03-14] MEDS: FOLIC ACID 1 MG TAB PO SCH (09:14)
[2021-03-14] MEDS: POTASSIUM CHLORIDE 10 MEQ SR TABLET PO SCH (09:14)
[2021-03-14] MEDS: FINASTERIDE 5 MG TAB PO SCH (09:14)
[2021-03-14] MEDS: APIXABAN 2.5 MG TAB (ELIQUIS) PO SCH (09:14)
[2021-03-14] MEDS: FUROSEMIDE 40MG/4ML VIAL (J1940) IV SCH ×3 (09:15→17:00)
[2021-03-14] MEDS: HumaLOG INSULIN (NovoLOG) PER UNIT SC SCH ×4 (09:15→20:24)
[2021-03-14] MEDS: NYSTATIN 100,000 UNITS/GM TOPICAL PWD 15 GM TOP SCH ×3 (09:16→20:49)
[2021-03-14] MEDS: METOPROLOL SUCC *XL* 25MG TAB (TopROL *XL*) PO SCH (09:40)
[2021-03-14 10:00] LABS: VITAMIN B12 LEVEL 555 PG/ML (247-911)
[2021-03-14 10:04] LABS: FOLATE > 24.0 NG/ML (>5.4)
[2021-03-14] MEDS: traMADol 50 MG TAB PO PRN (10:26)
[2021-03-14 10:45] VITALS: BP 102/64
[2021-03-14] MEDS ORDERED: LIDOCAINE 5% (LIDODERM) PATCH TD ONE (11:00)
[2021-03-14 11:09] LABS: C REACTIVE PROTEIN QUANTITATIV 11.2 MG/DL (0.00-0.30)
[2021-03-14] MEDS: ACETAMINOPHEN TAB 650MG DOSE (2X325MG) PO PRN (11:09)
[2021-03-14 11:41] LABS: ERYTHROCYTE SEDIMENTATION RATE 71 mm/hr (0-20)
[2021-03-14] MEDS ORDERED: FUROSEMIDE 20MG/2ML VIAL (J1940) IV ONE (11:45)
--- NOTE | 2021-03-14 12:08 | IPNPDOC ---
Text Note Date of Service The patient was seen on 03/14/21. NOTE Subjective: Patient stated that he feels much better today. He developed tac hycardia in the morning subsided after p.o. metoprolol Objective: GENERAL APPEARANCE: Obese male HEENT: no scleral icterus, plus JVD, EOMI CARDIOVASCULAR: Irregularly irregular LUNGS: Diminished lung sounds bilaterally ABDOMEN: soft & not tender w palpitation MUSCULOSKELETAL: no cyanosis, +1 lower extremity edema INTEGUMENT: no generalized pallor NEUROLOGICAL: cranial nerve function from 2-12 intact intact, follows commands, speech not dysarthric Assessment/Plan Patient is 75 years old male with past medical history of hypertension, aortic valve replacement, type 2 diabetes, thrombocytopenia, atrial fibrillation, pacemaker presented to hospital with fever and chills. According to his patient developed generalized weakness with fever yesterday night associated with rigors and abdominal pain. Patient reported abdominal pain in the left lower quadrant. He denies any diarrhea or dysuria. Patient did not have nausea or vomiting. In ER patient was found fever over 101.2 elevated lactic acid of 2.8, leukocytes count 7.6, sedimentation rate of 58, platelet count of 52, CPK 999, creatinine 3, troponin 0.16, BNP 1433. Echo was done and showed ejection fraction of 60 to 65%, no vegetations, high central venous pressure. CT chest showed Cardiomegaly with left atrial and ventricular enlargement, a small pericardial effusion up to 10 mm in thickness and aortic valve surgery with the mild the dilatation of the ascending aorta up to 4.2 cm AP diameter, CT abdomen pelvis showed Inflammatory changes in the pericolonic fat adjacent to the proximal sigmoid near the junction with distal left colon that may reflect diverticulitis no diverticular abscess perforation ascites or free air Problems Acute diverticulitis/sepsis Patient had fever, left lower quadrant abdominal pain, CT shows picture consistent with acute diverticulitis. Abdominal pain resolved. I upgraded his diet. Zosyn IV day 3 Pain management Blood culture came back positive for Enterococcus faecalis. Procalcitonin elevated to 5.7. Await repeated blood culture. Negative MRSA, discontinued vancomycin IV His lactic acid within normal limit Cardiology team will proceed with CASSIDY in 2 to 3 days Appreciate/agree with ID consult COPD (chronic obstructive pulmonary disease) Not in acute exacerbation Continue inhalers Thrombocytopenia Most likely secondary to liver cirrhosis Continue to monitor Cirrhosis of liver Follow-up with GI team in the outpatient settings Acute diastolic CHF (congestive heart failure) BNP elevated, CT shows cardiomegaly Echo showed Normal left ventricular (LV) size with mild left ventricular hypertrophy (LVH) and preserved LV systolic function. Septal wall motion abnormality likely due to underlying pacing. overall ejection fraction is preserved and it around 60-65%. We will restart Lasix I's and O's (6) Thoracic aortic aneurysm Follow-up with ultrasound every 6 months (7) Type 2 diabetes mellitus Continue insulin sliding scale HbA1c 7.1 Macrocytic anemia B12, folate within normal limit iron studies showed low iron There is concern for MDS, follow-up with fire alarm operator in the outpatient settings MIGNON Secondary to sepsis Improved Continue to monitor VS,Fishbone, I+O VS, Fishbone, I+O Laboratory Tests 03/14/21 05:39 Vital Signs Date Time Temp Pulse Resp B/P (MAP) Pulse Ox O2 Delivery O2 Flow Rate FiO2 03/14/21 10:56 18 03/14/21 10:45 102/64 (77) 92 Room Air 03/14/21 09:40 84 03/14/21 07:15 98.2 03/14/21 06:00 2.0 I&O- Last 24 Hours up to 6 AM 03/14/21 06:00 Intake Total 5580 ml Output Total 1475 ml Balance 4105 ml REGLA JONES DO Mar 14, 2021 12:08
[2021-03-14 14:00] VITALS: BP 90/54
[2021-03-14] MEDS: IRON POLYSAC (NIFEREX) 150 MG CAP PO SCH ×2 (14:24→20:48)
[2021-03-14] MEDS ORDERED: GLYCOPYRROLATE INH SCH (20:00)
[2021-03-14] MEDS ORDERED: BUDESONIDE INH SCH (20:00)
[2021-03-14] MEDS ORDERED: FORMOTEROL INH SCH (20:00)
[2021-03-14] MEDS: APIXABAN 5 MG TAB (ELIQUIS) PO SCH (20:48)
[2021-03-14] MEDS: MIRTAZAPINE 15 MG TAB PO SCH (20:49)
[2021-03-14] MEDS: cefTRIAXone SOD 2 GM in D5W MINI-BAG PLUS 50 ML IV SCH (20:49)
[2021-03-14] MEDS ORDERED: **NOTE PATIENT COMMENT** MISC XX SCH (21:00)
[2021-03-14] MEDS: **NOTE PATIENT COMMENT** MISC XX SCH (21:09)
[2021-03-14 22:00] VITALS: BP 93/58
[2021-03-14] MEDS: AMPICILLIN SOD 2 GM in D5W MINI-BAG PLUS 100 ML IV SCH (22:09)
[2021-03-15] MEDS: AMPICILLIN SOD 2 GM in D5W MINI-BAG PLUS 100 ML IV SCH ×6 (02:37→21:59)
[2021-03-15 05:53] LABS: BASO % 0.6 % (0.0-1.0); EOS # 0.1 10^3/uL (0.0-0.5); EOS % 2.5 % (0.0-3.0); HEMATOCRIT 26.5 % (42.0-52.0); HEMOGLOBIN 8.8 g/dl (13.5-17.5); LYMPH # 0.8 10^3/uL (1.5-5.0); LYMPH % 22.6 % (24.0-44.0); MEAN CORPUSCULAR HEMOGLOBIN 36.2 pg (27.0-33.0); MEAN CORPUSCULAR HGB CONC 33.2 g/dl (32.0-36.5); MEAN CORPUSCULAR VOLUME 109.1 fl (80.0-96.0); MONO # 0.4 10^3/uL (0.0-0.8); MONO % 12.1 % (2.0-8.0); NEUTROPHILS # 2.2 10^3/uL (1.5-8.5); NEUTROPHILS % 61.9 % (36.0-66.0); RED BLOOD COUNT 2.43 10^6/uL (4.30-6.10); WHITE BLOOD COUNT 3.5 10^3/uL (4.0-10.0)
[2021-03-15 05:56] LABS: PLATELET COUNT, AUTOMATED 52 10^3/uL (150-450)
[2021-03-15 06:00] VITALS: BP 102/75
[2021-03-15 06:16] LABS: ALBUMIN 2.7 GM/DL (3.2-5.2); BILIRUBIN,TOTAL 0.7 MG/DL (0.2-1.0); CALCIUM LEVEL 8.1 MG/DL (8.8-10.2); CREATININE FOR GFR 1.64 MG/DL (0.70-1.30); GLOMERULAR FILTRATION RATE 43.9 (>42); MAGNESIUM LEVEL 1.9 MG/DL (1.8-2.4); POTASSIUM SERUM 3.8 MEQ/L (3.5-5.1)
[2021-03-15] MEDS: FORMOTEROL INH SCH ×2 (08:12→20:21)
[2021-03-15] MEDS: GLYCOPYRROLATE INH SCH ×2 (08:12→20:21)
[2021-03-15] MEDS: TIOTROPIUM INHALER/CAPSULE (SPIRIVA) INH SCH (08:12)
[2021-03-15] MEDS: BUDESONIDE INH SCH ×2 (08:12→20:21)
[2021-03-15] MEDS: cefTRIAXone SOD 2 GM in D5W MINI-BAG PLUS 50 ML IV SCH ×2 (08:41→20:53)
[2021-03-15] MEDS: FOLIC ACID 1 MG TAB PO SCH (08:42)
[2021-03-15] MEDS: FINASTERIDE 5 MG TAB PO SCH (08:42)
[2021-03-15] MEDS: IRON POLYSAC (NIFEREX) 150 MG CAP PO SCH ×2 (08:42→20:53)
[2021-03-15] MEDS: POTASSIUM CHLORIDE 10 MEQ SR TABLET PO SCH (08:42)
[2021-03-15] MEDS: allopurinoL 100 MG TAB PO SCH (08:42)
[2021-03-15] MEDS: HumaLOG INSULIN (NovoLOG) PER UNIT SC SCH ×4 (08:43→20:38)
[2021-03-15] MEDS: NYSTATIN 100,000 UNITS/GM TOPICAL PWD 15 GM TOP SCH ×3 (08:43→20:54)
[2021-03-15] MEDS: LIDOCAINE 5% (LIDODERM) PATCH TD SCH (08:44)
[2021-03-15] MEDS: APIXABAN 5 MG TAB (ELIQUIS) PO SCH (08:56)
[2021-03-15] MEDS: METOPROLOL SUCC *XL* 25MG TAB (TopROL *XL*) PO SCH (08:56)
[2021-03-15] MEDS: FUROSEMIDE 40MG/4ML VIAL (J1940) IV SCH ×2 (08:56→17:36)
[2021-03-15] MEDS ORDERED: FUROSEMIDE 20MG/2ML VIAL (J1940) IV ONE (09:00)
--- NOTE | 2021-03-15 09:04 | CR ---
CONSULTATION DATE: 03/14/2021 Mr. Palomo is a 75-year-old, pleasant gentleman who was brought into the hospital by the ambulance after he had a fever, shaking chills, and fell out of bed. The patient's could not help him get up from the floor between the bed and the wall so she called the ambulance. The patient reported some mild left lower quadrant pain but no dysuria or hematuria, no nausea or vomiting. In the emergency room (ER), he had a fever of 101.2, his creatinine was 2.86, he had positive blood cultures for Enterococcus faecalis times two sets and on 03/13/2021 his blood cultures were no growth after 24 hours. Patient was started on IV Zosyn. Patient has a past medical history significant for aortic valve replacement in [address] Pedersen. The patient had a transesophageal echocardiogram as a workup for Watchman procedure because he wants to get off his blood thinners as he has multiple and severe bruising, this was on 02/11/2021. On 02/24/2021, he was seen by his hand marker's nurse practitioner for followup on the CASSIDY which supposedly did not show any vegetation and he was a good candidate for Watchman procedure. He had a cystoscopy done on 03/03/2021, done by Dr. Johny Celeste at [facility] for workup of BPH, no antibiotic prophylaxis were given before his cystoscopy. Patient feels better, he has some increased shortness of breath but states that he has not been getting his nebulizer or his inhalers that he uses at home including his Spiriva. No cough. No dysuria or hematuria. He has frequency and nocturia from his BPH. 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 PAST SURGICAL HISTORY: Aortic valve replacement for low ejection fraction and heart failure, pacemaker placement, left hip joint replacement, rotator cuff repair on the right side. FAMILY HISTORY: Nonrevealing. SOCIAL HISTORY: He is , he lives with his , they live in [place] in the winter and they have a trailer in the summer in [place] where they have been vacationing for over 30 years. REVIEW OF SYSTEMS: He had fever and chills that now have resolved, he has mild left lower quadrant pain, no rashes, he has some dyspnea but no chest pain, no dysuria but has frequency from BPH, and no nocturia. Patient is a healthy looking gentleman in no acute distress. Temperature is 98, pulse 83, respirations 20, blood pressure 90/54, oxygen saturation 93% on room air. Maximum temperature (T-max) on 03/12/2021 was 102, he has been afebrile for 24 hours. Heart: Normal S1, S2, with a systolic ejection murmur 2/6 at the left upper sternal border. Lungs: Diminished breath sounds at the bases, good air entry. Abdomen: Soft, obese, nontender, no hepatosplenomegaly appreciated. Chest: With a pacemaker left subclavian pocket which is nontender. Extremities: +1 pitting edema with venous stasis changes, hyperpigmented, no open lesion. Neurologic: Alert and oriented times three, motor strength is normal. Skin: Multiple ecchymoses on his arms and some on his legs. LABORATORY DATA: Sodium 144, potassium 4, chloride 109, bicarbonate 27, BUN 48, creatinine 1.97, glucose 164, lactic acid was 2.4, down to 1.4, calcium 7.8, magnesium 1.9, bilirubin 0.7, AST 298, down from 506, and ALT 71, down from 81. White count 4.5, hemoglobin 8.5, hematocrit 26.9, platelets 42, 69% neutrophils, 14% lymphocytes, 13% monocytes. Vancomycin trough 14.3. SARS-CoV-2, influenza A/B, RSV negative. MRSA screen not detected. Blood cultures two sets E. faecalis on 03/12/2021 and 03/13/2021, no growth after [address] abdomen and pelvis: There is a lower pole calcification in the right kidney, no hydronephrosis, hepatosplenomegaly, kidneys with a solitary stone on the right side, inflammatory changes in the pericolonic fat adjacent to the proximal sigmoid may reflect diverticulitis but there is no abscess or perforation. Chest CT: Cardiomegaly, chest CT with left atrial and ventricular enlargement, a small pericardial effusion up to 10 mm in thickness and aortic valve surgery with dilatation of the ascending aorta up to 4.2 cm. Transthoracic echocardiogram done by Dr. Sanchez is of fair technical quality with fair visualization, patient does not appear to be in sinus rhythm, aortic bioprosthesis was poorly seen, degenerative abnormalities but mobility is preserved, no significant aortic stenosis and no insufficiency of the mitral valve, is functional, competent. IMPRESSION: This is a 75-year-old gentleman who is admitted with acute onset of fever, rigors, and bacteremia from Enterococcus faecalis, he has mild left lower quadrant pain which does not seem to be a prominent symptom at this time. Bacteremia could have been from diverticulitis, but I am concerned that he had a cystoscopy on 03/03/2021 which could have caused also the bacteremia and seeded his aortic valve with secondary endocarditis. The patient has liver cirrhosis with severe thrombocytopenia. PLAN: Agree with pursuing a transesophageal echocardiogram, I agree with Dr. Sanchez that it could be from diverticulitis although his abdominal symptoms were very transient. Also he had a cystoscopy on 03/03/2021 without preoperative antibiotic prophylaxis which could be a source of bacteremia. Discontinue IV Zosyn, I would treat him now for presumptive endocarditis with ampicillin and Rocephin until transesophageal echocardiogram, Rocephin is used for synergy with ampicillin in endocarditis. Further management will depend on results of CASSIDY. In any case, since the patient has an aortic valve replacement and is going for Watchman procedure I will treat him for a minimum of 2 weeks even if CASSIDY is negative Vs ^ weeks if CASSIDY suggest endocarditis MTDD
[2021-03-15] MEDS: IPRATROPIUM 0.5MG/ALBUTEROL 2.5MG INH SOL UD 3ML (DUONEB) NEB PRN ×3 (11:17→20:26)
[2021-03-15] MEDS: ACETAMINOPHEN TAB 650MG DOSE (2X325MG) PO PRN ×2 (13:29→20:55)
--- NOTE | 2021-03-15 13:32 | IPNPDOC ---
Text Note Date of Service The patient was seen on 03/15/21. NOTE Subjective: No new acute events overnight. Patient denied fever, chills, mary[place] sea, vomiting Objective: GENERAL APPEARANCE: Obese male HEENT: no scleral icterus, plus JVD, EOMI CARDIOVASCULAR: Irregularly irregular LUNGS: Diminished lung sounds bilaterally ABDOMEN: soft & not tender w palpitation MUSCULOSKELETAL: no cyanosis, +1 lower extremity edema INTEGUMENT: no generalized pallor NEUROLOGICAL: cranial nerve function from 2-12 intact intact, follows commands, speech not dysarthric Assessment/Plan Patient is 75 years old male with past medical history of hypertension, aortic valve replacement, type 2 diabetes, thrombocytopenia, atrial fibrillation, pac emaker presented to hospital with fever and chills. According to his patient developed generalized weakness with fever yesterday night associated with rigors and abdominal pain. Patient reported abdominal pain in the left lower quadrant. He denies any diarrhea or dysuria. Patient did not have nausea or vomiting. In ER patient was found fever over 101.2 elevated lactic acid of 2.8, leukocytes count 7.6, sedimentation rate of 58, platelet count of 52, CPK 999, creatinine 3, troponin 0.16, BNP 1433. Echo was done and showed ejection fraction of 60 to 65%, no vegetations, high central venous pressure. CT chest showed Cardiomegaly with left atrial and ventricular enlargement, a small pericardial effusion up to 10 mm in thickness and aortic valve surgery with the mild the dilatation of the ascending aorta up to 4.2 cm AP diameter, CT abdomen pelvis showed Inflammatory changes in the pericolonic fat adjacent to the proximal sigmoid near the junction with distal left colon that may reflect diverticulitis no diverticular abscess perforation ascites or free air Problems Acute diverticulitis/sepsis Patient had fever, left lower quadrant abdominal pain, CT shows picture consiste nt with acute diverticulitis. Abdominal pain resolved. I upgraded his diet. Dr. Caruso changed Zosyn to ampicillin and ceftriaxone day 4 of antibiotic therapy Blood culture came back positive for Enterococcus faecalis. Procalcitonin elevated to 5.7. Negative repeated blood culture. Cardiology team will proceed with CASSIDY in 2 to 3 days ID recommended treat him now for presumptive endocarditis with ampicillin and Rocephin until transesophageal echocardiogram. If CASSIDY negative treat him for a minimum of 2 weeks even if CASSIDY is negative. COPD (chronic obstructive pulmonary disease) Not in acute exacerbation Continue inhalers Thrombocytopenia Most likely secondary to liver cirrhosis Continue to monitor Cirrhosis of liver Follow-up with GI team in the outpatient settings Acute diastolic CHF (congestive heart failure) BNP elevated, CT shows cardiomegaly Echo showed Normal left ventricular (LV) size with mild left ventricular hypertrophy (LVH) and preserved LV systolic function. Septal wall motion abnormality likely due to underlying pacing. overall ejection fraction is preserved and it around 60-65%. Continue Lasix I's and O's (6) Thoracic aortic aneurysm Follow-up with ultrasound every 6 months (7) Type 2 diabetes mellitus Continue insulin sliding scale HbA1c 7.1 Macrocytic anemia B12, folate within normal limit iron studies showed low iron There is concern for MDS, follow-up with mobile application developer in the outpatient settings MIGNON Secondary to sepsis Improved Continue to monitor VS,Fishbone, I+O VS, Fishbone, I+O Laboratory Tests 03/15/21 05:28 Vital Signs Date Time Temp Pulse Resp B/P (MAP) Pulse Ox O2 Delivery O2 Flow Rate FiO2 03/15/21 11:19 18 03/15/21 08:56 87 98/57 03/15/21 06:00 98.0 92 Room Air 03/14/21 06:00 2.0 I&O- Last 24 Hours up to 6 AM 03/15/21 06:00 Intake Total 730 ml Output Total 1125 ml Balance -395 ml REGLA JONES DO Mar 15, 2021 13:32
[2021-03-15] MEDS: APIXABAN 2.5 MG TAB (ELIQUIS) PO SCH ×2 (13:38→20:53)
[2021-03-15] MEDS: METOPROLOL TART 25 MG TABLET PO SCH ×2 (13:39→22:00)
[2021-03-15 14:31] VITALS: BP 102/54
[2021-03-15 20:49] VITALS: BP 94/60
[2021-03-15] MEDS: MIRTAZAPINE 15 MG TAB PO SCH (20:53)
[2021-03-15] MEDS: **NOTE PATIENT COMMENT** MISC XX SCH (20:54)
[2021-03-15 21:20] VITALS: BP 115/60
[2021-03-15] MEDS ORDERED: METOPROLOL TART 12.5 MG PER 1/2 TAB PO ONE (22:05)
[2021-03-15] MEDS: CEPACOL LOZENGE PO PRN (22:33)
--- NOTE | 2021-03-15 23:33 | ECGEPIP ---
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
[2021-03-16] VITALS (12 sets, daily range): BP systolic 116–148; BP diastolic 73–90
[2021-03-16 00:49] LABS: HEMATOCRIT 24.2 % (42.0-52.0); HEMOGLOBIN 8.1 g/dl (13.5-17.5)
[2021-03-16] MEDS: AMPICILLIN SOD 2 GM in D5W MINI-BAG PLUS 100 ML IV SCH ×4 (04:38→22:10)
[2021-03-16 06:21] LABS: BASO % 0.4 % (0.0-1.0); EOS # 0.1 10^3/uL (0.0-0.5); EOS % 2.6 % (0.0-3.0); HEMATOCRIT 23.6 % (42.0-52.0); HEMOGLOBIN 7.9 g/dl (13.5-17.5); LYMPH # 0.6 10^3/uL (1.5-5.0); LYMPH % 26.2 % (24.0-44.0); MEAN CORPUSCULAR HEMOGLOBIN 36.2 pg (27.0-33.0); MEAN CORPUSCULAR HGB CONC 33.5 g/dl (32.0-36.5); MEAN CORPUSCULAR VOLUME 108.3 fl (80.0-96.0); MONO # 0.2 10^3/uL (0.0-0.8); NEUTROPHILS # 1.4 10^3/uL (1.5-8.5); NEUTROPHILS % 61.4 % (36.0-66.0); RED BLOOD COUNT 2.18 10^6/uL (4.30-6.10); WHITE BLOOD COUNT 2.3 10^3/uL (4.0-10.0)
[2021-03-16] MEDS: METOPROLOL TART 25 MG TABLET PO SCH ×3 (06:26→21:01)
[2021-03-16 06:27] LABS: PLATELET COUNT, AUTOMATED 44 10^3/uL (150-450)
[2021-03-16 06:43] LABS: CREATININE FOR GFR 1.33 MG/DL (0.70-1.30); POTASSIUM SERUM 3.4 MEQ/L (3.5-5.1)
[2021-03-16 06:44] LABS: ALBUMIN 2.6 GM/DL (3.2-5.2); BILIRUBIN,TOTAL 0.5 MG/DL (0.2-1.0); CALCIUM LEVEL 7.9 MG/DL (8.8-10.2); MAGNESIUM LEVEL 1.8 MG/DL (1.8-2.4); TOTAL PROTEIN 5.8 GM/DL (6.4-8.2)
[2021-03-16] MEDS: BUDESONIDE INH SCH ×4 (08:00→20:53)
[2021-03-16] MEDS: TIOTROPIUM INHALER/CAPSULE (SPIRIVA) INH SCH (08:00)
[2021-03-16] MEDS: FORMOTEROL INH SCH ×4 (08:00→20:53)
[2021-03-16] MEDS: GLYCOPYRROLATE INH SCH ×4 (08:00→20:53)
[2021-03-16] MEDS: NYSTATIN 100,000 UNITS/GM TOPICAL PWD 15 GM TOP SCH ×3 (08:25→20:55)
[2021-03-16] MEDS: LIDOCAINE 5% (LIDODERM) PATCH TD SCH (08:25)
[2021-03-16] MEDS: HumaLOG INSULIN (NovoLOG) PER UNIT SC SCH ×4 (08:26→20:40)
[2021-03-16] MEDS: FINASTERIDE 5 MG TAB PO SCH (08:26)
[2021-03-16] MEDS: IRON POLYSAC (NIFEREX) 150 MG CAP PO SCH ×2 (08:26→20:54)
[2021-03-16] MEDS: FOLIC ACID 1 MG TAB PO SCH (08:27)
[2021-03-16] MEDS: FUROSEMIDE 40MG/4ML VIAL (J1940) IV SCH ×3 (08:27→23:04)
[2021-03-16] MEDS: allopurinoL 100 MG TAB PO SCH (08:27)
[2021-03-16] MEDS: POTASSIUM CHLORIDE 10 MEQ SR TABLET PO SCH (08:27)
[2021-03-16] MEDS: cefTRIAXone SOD 2 GM in D5W MINI-BAG PLUS 50 ML IV SCH ×2 (08:28→20:54)
[2021-03-16] MEDS ORDERED: POTASSIUM CHLORIDE 10 MEQ SR TABLET PO ONE (10:00)
[2021-03-16] MEDS: ENTRESTO 49-51MG TABLET (SACUBITRIL/VALSARTAN) PO SCH ×2 (11:06→20:54)
--- NOTE | 2021-03-16 11:55 | IPN ---
INFECTIOUS DISEASE PROGRESS NOTE DATE: 03/15/2021 SUBJECTIVE: Mr. Palomo is complaining of increasing shortness of breath. He feels his dose of Lasix is too low for him. He usually takes 60 mg daily. He also takes his metoprolol usually at night and his blood pressure was low today in the morning and therefore, he was concerned about that as well. He denies any chest pain. No fever, chills, nausea, vomiting or diarrhea. Abdominal pain has completely resolved. PHYSICAL EXAMINATION: GENERAL: Obese man in no acute distress. CARDIOVASCULAR: Irregularly irregular. Systolic ejection murmur 1/6 left upper sternal border. LUNGS: Decreased breath sounds at the bases. No wheezes, rales or rhonchi. ABDOMEN: Obese, soft, nontender. EXTREMITIES: 1+ pitting edema bilaterally. No clubbing or cyanosis. SKIN: No rashes. LABORATORY DATA: Sodium 142, potassium 3.8, chloride 109, bicarbonate 30, BUN 41, creatinine 1.64, glucose 170, calcium 8.1, magnesium 1.9. Bilirubin 0.7, AST 21, ALT 72, alkaline phosphatase 54. White count 3.5, hemoglobin 8.8, hematocrit 26.5, platelets 52, 62% neutrophils, 22% lymphocytes, 12% monocytes. Vancomycin trough yesterday was 14.3. Blood cultures 03/12/2021 two sets were positive for Enterococcus (E) faecalis sensitive to ampicillin with a minimum inhibitory concentration (MACKENZIE) of less than 2. Erythrocyte sedimentation rate (ESR) was 71 and C-reactive protein (CRP) elevated at 11.2. Repeat blood cultures were negative on 03/13/2021 times two sets. Hemoccult guaiac was positive on 03/15/2021. IMPRESSION: 1. Enterococcus faecalis bacteremia with questionable findings of diverticulitis on CT, although patient does not have much abdominal pain at this point. He is on intravenous (IV) ampicillin and ceftriaxone. 2. History of aortic valve replacement with Enterococcus faecalis bacteremia makes that concerning for endocarditis and, therefore, the patient is being treated for presumptive endocarditis until transesophageal echocardiogram (CASSIDY) results which is scheduled to be done by Dr. Sanchez hopefully in the next 48 hours. The patient had also a cystoscopy in early February without SBE prophylaxis, so that may be another source of infection. 3. History of congestive heart failure, diastolic. Patient concerned that his dose of Lasix is much lower than his normal. Currently, he is receiving furosemide 40 mg IV every 12 hours. PLAN: Continue IV ampicillin, dose is adjusted to 2 grams every 6 hours. Renally dose for GFR between 30 and 50 and IV Rocephin 2 grams every 12 hours. Hopefully, CASSIDY in the next couple of days to decide on plan of treatment. MTDD
--- NOTE | 2021-03-16 12:54 | IPN ---
PROGRESS NOTE DATE: 03/16/2021 SUBJECTIVE: I met with Mr. Palomo again at his bedside. He today has no complaints and tells me he is feeling much better, essentially back to his baseline. He does not have any acute complaints. OBJECTIVE: VITAL SIGNS: Blood pressure 130/80 but during the night it was relatively hypotensive in the 90s systolic. Heart rate from 80s to low 100s. It is mostly sinus rhythm. There is no JVP elevation. LUNGS: Clear. HEART: Regular rhythm currently with unchanged murmur that is not very impressive over the aortic valve. No gallop or rub appreciated. There is no significant peripheral edema. LABORATORIES: CBC revealed a WBC count 2.3, hemoglobin 7.9, hematocrit 23.6, and platelet count 44,000. Basic metabolic panel: Sodium 144, potassium 3.4, BUN 34, creatinine 1.3 and glucose 189. His microbiology reveals that his initial two blood cultures on March 12 are both positive for Enterococcus faecalis but subsequent blood cultures a day later was already negative. ASSESSMENT AND PLAN: Mr. Palomo is a 75-year-old man who presented with a fever, chills, and was tentatively diagnosed with diverticulitis. In the interim his blood cultures were positive for Enterococcus faecalis. He has a history of aortic valve replacement with bioprosthetic valve and has a history of recent cystoscopy without SBE prophylaxis being administered. Consequently it is felt by the attending physician and the ID customs consultant Dr. Caruso that transesophageal echocardiogram is clearly indicated to visualize aortic valve and look evidence for endocarditis. I spoke with the patient again. I explained the procedure. He is ready to proceed this afternoon. He will be kept NPO after a light breakfast. Because of his thrombocytopenia I am going to hold his Eliquis this morning.
--- NOTE | 2021-03-16 13:05 | IPNPDOC ---
Text Note Date of Service The patient was seen on 03/16/21. NOTE Subjective: No new acute events overnight. Yesterday evening patient developed stool covered with blood. He complains of increased shortness of breath in the morning. Objective: GENERAL APPEARANCE: Obese male HEENT: no scleral icterus, plus JVD, EOMI CARDIOVASCULAR: Irregularly irregular LUNGS: Diminished lung sounds bilaterally ABDOMEN: soft & not tender w palpitation MUSCULOSKELETAL: no cyanosis, +1 lower extremity edema INTEGUMENT: no generalized pallor NEUROLOGICAL: cranial nerve function from 2-12 intact intact, follows commands, speech not dysarthric Assessment/Plan Patient is 75 years old male with past medical history of hypertension, aortic valve replacement, type 2 diabetes, thrombocytopenia, atrial fibrillation, pacemaker presented to hospital with fever and chills. According to his patient developed generalized weakness with fever yesterday night associated with rigors and abdominal pain. Patient reported abdominal pain in the left lower quadrant. He denies any diarrhea or dysuria. Patient did not have nausea or vomiting. In ER patient was found fever over 101.2 elevated lactic acid of 2.8, leukocytes count 7.6, sedimentation rate of 58, platelet count of 52, CPK 999, creatinine 3, troponin 0.16, BNP 1433. Echo was done and showed ejection fraction of 60 to 65%, no vegetations, high central venous pressure. CT chest showed Cardiomegaly with left atrial and ventricular enlargement, a small pericardial effusion up to 10 mm in thickness and aortic valve surgery with the mild the dilatation of the ascending aorta up to 4.2 cm AP diameter, CT abdomen pelvis showed Inflammatory changes in the pericolonic fat adjacent to the proximal sigmoid near the junction with distal left colon that may reflect diverticulitis no diverticular abscess perforation ascites or free air Problems Acute diverticulitis/sepsis Patient had fever, left lower quadrant abdominal pain, CT shows picture consistent with acute diverticulitis. Abdominal pain resolved. I upgraded his diet. Dr. Caruso changed Zosyn to ampicillin and ceftriaxone day 5 of antibiotic therapy Blood culture came back positive for Enterococcus faecalis. Procalcitonin elevated to 5.7. Negative repeated blood culture. Cardiology team will proceed with CASSIDY today ID recommended treat him now for presumptive endocarditis with ampicillin and Rocephin until transesophageal echocardiogram. If CASSIDY negative treat him for a minimum of 2 weeks even if CASSIDY is negative. Shortness of breath/GI blood loss anemia/GI bleed Most likely due to anemia secondary to GI bleed. Hemoglobin 7.9, I will give him 1 unit of blood COPD (chronic obstructive pulmonary disease) Not in acute exacerbation Continue inhalers Thrombocytopenia Most likely secondary to liver cirrhosis Continue to monitor Cirrhosis of liver Follow-up with GI team in the outpatient settings Acute diastolic CHF (congestive heart failure) BNP elevated, CT shows cardiomegaly Echo showed Normal left ventricular (LV) size with mild left ventricular hypertrophy (LVH) and preserved LV systolic function. Septal wall motion abnormality likely due to underlying pacing. overall ejection fraction is preserved and it around 60-65%. Continue Lasix 40 mg IV, his volume status improved. Patient had hypotension in the morning I will not increase the dose of Lasix for now. We will check BNP I's and O's (6) Thoracic aortic aneurysm Follow-up with ultrasound every 6 months (7) Type 2 diabetes mellitus Continue insulin sliding scale HbA1c 7.1 Macrocytic anemia B12, folate within normal limit iron studies showed low iron There is concern for MDS, follow-up with cashier and waiter/waitress in the outpatient settings MIGNON Secondary to sepsis Improved Continue to monitor VS,Fishbone, I+O VS, Fishbone, I+O Laboratory Tests 03/16/21 00:45 03/16/21 05:57 Vital Signs Date Time Temp Pulse Resp B/P (MAP) Pulse Ox O2 Delivery O2 Flow Rate FiO2 03/16/21 06:26 86 130/80 03/16/21 05:00 98.3 19 95 Room Air 03/14/21 06:00 2.0 I&O- Last 24 Hours up to 6 AM 03/16/21 06:00 Intake Total 2080 ml Output Total 1100 ml Balance 980 ml REGLA JONES DO Mar 16, 2021 13:05
[2021-03-16] MEDS ORDERED: CETACAINE SPRAY 5GM As Ordered ONE (14:47)
[2021-03-16] MEDS ORDERED: LIDOCAINE VISCOUS 2% SOLN 15ML UDC As Ordered ONE (14:48)
[2021-03-16] MEDS ORDERED: propofoL 200 MG/20 ML VIAL As Ordered ONE (16:20)
[2021-03-16] MEDS ORDERED: LIDOCAINE 2% 100MG/5ML SDV (FOR ANES.) As Ordered ONE (16:20)
[2021-03-16] MEDS ORDERED: fentaNYL 100 MCG/2 ML INJECTION (J3010) As Ordered ONE (16:21)
[2021-03-16] MEDS ORDERED: dexameTHASONE 4 MG/ML 1ML VIAL (J1100 PER 1MG) As Ordered ONE (16:21)
[2021-03-16] MEDS ORDERED: ONDANSETRON 4MG/2ML VIAL As Ordered ONE (16:21)
[2021-03-16] MEDS ORDERED: ETOMIDATE INJ 20MG/10ML VIAL As Ordered ONE (17:49)
[2021-03-16] MEDS ORDERED: PHENYLephrine 500MCG 5ML (100MCG/ML) SYRINGE As Ordered ONE (18:08)
[2021-03-16] MEDS: MIRTAZAPINE 15 MG TAB PO SCH (20:54)
[2021-03-16] MEDS: **NOTE PATIENT COMMENT** MISC XX SCH (20:55)
[2021-03-17 00:13] VITALS: BP 117/62
[2021-03-17 02:00] VITALS: BP 114/90
[2021-03-17] MEDS: AMPICILLIN SOD 2 GM in D5W MINI-BAG PLUS 100 ML IV SCH ×4 (05:15→22:15)
[2021-03-17] MEDS: METOPROLOL TART 25 MG TABLET PO SCH ×3 (05:19→21:27)
[2021-03-17 06:00] VITALS: BP 119/89
[2021-03-17 07:05] LABS: BASO % 0.2 % (0.0-1.0); EOS % 0.2 % (0.0-3.0); HEMATOCRIT 32.5 % (42.0-52.0); LYMPH # 0.5 10^3/uL (1.5-5.0); LYMPH % 11.1 % (24.0-44.0); MEAN CORPUSCULAR HGB CONC 34.2 g/dl (32.0-36.5); MEAN CORPUSCULAR VOLUME 105.5 fl (80.0-96.0); MONO # 0.2 10^3/uL (0.0-0.8); MONO % 4.6 % (2.0-8.0); NEUTROPHILS # 3.6 10^3/uL (1.5-8.5); NEUTROPHILS % 83.2 % (36.0-66.0); RED BLOOD COUNT 3.08 10^6/uL (4.30-6.10); WHITE BLOOD COUNT 4.3 10^3/uL (4.0-10.0)
[2021-03-17 07:16] LABS: HEMOGLOBIN 11.1 g/dl (13.5-17.5); PLATELET COUNT, AUTOMATED 62 10^3/uL (150-450)
[2021-03-17 07:25] LABS: ALBUMIN 2.9 GM/DL (3.2-5.2); BILIRUBIN,TOTAL 0.8 MG/DL (0.2-1.0); CALCIUM LEVEL 8.9 MG/DL (8.8-10.2); CREATININE FOR GFR 1.36 MG/DL (0.70-1.30); GLOMERULAR FILTRATION RATE 54.5 (>42); MAGNESIUM LEVEL 1.7 MG/DL (1.8-2.4); POTASSIUM SERUM 4.1 MEQ/L (3.5-5.1); TOTAL PROTEIN 7.6 GM/DL (6.4-8.2)
[2021-03-17] MEDS: GLYCOPYRROLATE INH SCH ×2 (07:40→21:06)
[2021-03-17] MEDS: FORMOTEROL INH SCH ×2 (07:40→21:06)
[2021-03-17] MEDS: BUDESONIDE INH SCH ×2 (07:40→21:06)
[2021-03-17] MEDS: TIOTROPIUM INHALER/CAPSULE (SPIRIVA) INH SCH (07:40)
[2021-03-17] MEDS: LIDOCAINE 5% (LIDODERM) PATCH TD SCH (08:31)
[2021-03-17] MEDS: HumaLOG INSULIN (NovoLOG) PER UNIT SC SCH ×4 (08:31→21:00)
[2021-03-17] MEDS: ENTRESTO 49-51MG TABLET (SACUBITRIL/VALSARTAN) PO SCH ×2 (08:32→21:26)
[2021-03-17] MEDS: IRON POLYSAC (NIFEREX) 150 MG CAP PO SCH ×2 (08:32→21:26)
[2021-03-17] MEDS: allopurinoL 100 MG TAB PO SCH (08:32)
[2021-03-17] MEDS: FINASTERIDE 5 MG TAB PO SCH (08:32)
[2021-03-17] MEDS: POTASSIUM CHLORIDE 10 MEQ SR TABLET PO SCH (08:32)
[2021-03-17] MEDS: FOLIC ACID 1 MG TAB PO SCH (08:32)
[2021-03-17] MEDS: FUROSEMIDE 40MG/4ML VIAL (J1940) IV SCH ×3 (08:33→23:30)
[2021-03-17] MEDS: NYSTATIN 100,000 UNITS/GM TOPICAL PWD 15 GM TOP SCH ×3 (08:33→21:27)
[2021-03-17] MEDS ORDERED: MAG SULF 1GM/100ML (MAG RUN) 1 GM in IV 1 EA IV ONE (09:00)
[2021-03-17] MEDS: cefTRIAXone SOD 2 GM in D5W MINI-BAG PLUS 50 ML IV SCH ×2 (09:46→21:29)
--- NOTE | 2021-03-17 10:48 | T-ECHO ---
TRANSESOPHAGEAL ECHO DATE: 03/16/2021 REFERRING PHYSICIAN: Tyree Callejas M.D. INDICATIONS: Enterococcal bacteremia, history of aortic valve replacement, suspicion for endocarditis. ANESTHESTIOLOGIST: Beck Eduardo CRNA BRIEF HISTORY: Mr. Palomo is a very pleasant man who has a history of aortic valve replacement with bioprosthesis. He presented to [facility] with abdominal pain, fever, chills and grew Enterococcus from blood cultures. Consequently, I was asked to perform transesophageal echocardiogram with suspicion for bacterial endocarditis. I discussed the nature of the procedure with the patient prior. On the day of procedure, I went over it again in great length. He already signed the consent two days previously. PROCEDURE NOTE: Procedure was performed in the operating room. Patient presented in a fasting condition. After appropriate time out was taken and all appropriate monitors was applied, he was positioned in the left lateral decubitus position. Face mask with oxygen was applied. Probe was then introduced into the esophagus and later, stomach, after he as sedated by anesthesia. After appropriate images were obtained, the probe was withdrawn. Patient tolerated the procedure well and there were no obvious complications. FINDINGS: Left ventricle seems to have normal systolic function. I estimate ejection fraction (EF) around 55-60%. Right ventricle also has normal size and systolic function. Both atria are severely enlarged. Left atrial appendage is large, but free of thrombi and has normal flow. There is also normal flow in right and left-sided pulmonary veins. Atrial septum is intact based on color Doppler and 2-dimensional imaging. Mitral valve has normal anatomy. It has normal mobility and there are no visualized vegetations. Mild or possibly mild to moderate mitral insufficiency is seen. Pulmonic valve was relatively poorly visualized, but no obvious vegetations are seen. Trivial insufficiency was noted. Tricuspid valve was partially obscured by presence of pacemaker lead artifacts in both right atrium and right ventricle. On the atrial lead, there appears to be a bright echodensity attached, that most likely represents small thrombus, much less likely vegetation. Tricuspid valve itself appears intact. No pericardial effusion is noted. There is mild atherosclerosis in the descending thoracic aorta. Aortic valve is bioprosthetic. It has normal mobility. There are no visualized vegetations by color Doppler imaging. There is no stenosis or insufficiency. CONSLUSIONS: 1. Preserved left ventricular (LV) systolic function. 2. Normally functioning aortic bioprosthesis. 3. Mild or mild to moderate mitral insufficiency. 4. Normal tricuspid and pulmonic valves. 5. Very small, very bright echodensity seen on one of the pacemaker leads, most likely representing small calcified thrombus. Much less likely vegetation. 6. Intact atrial septum. 7. No left atrial appendage thrombus. 8. Normal flow in both left and right-sided pulmonary veins. 9. Mild thoracic aortic atherosclerosis. COMMENTS: No convincing evidence for endocarditis was seen. MTDD
--- NOTE | 2021-03-17 12:34 | IPNPDOC ---
Text Note Date of Service The patient was seen on 03/17/21. NOTE Subjective: No new acute events overnight. Patient complains of eyes itchiness and eyelids slight puffiness bilaterally. He stated that his breathing improved Objective: GENERAL APPEARANCE: Obese male HEENT: no scleral icterus, plus JVD, EOMI CARDIOVASCULAR: Irregularly irregular LUNGS: Diminished lung sounds bilaterally ABDOMEN: soft & not tender w palpitation MUSCULOSKELETAL: no cyanosis, +1 lower extremity edema INTEGUMENT: no generalized pallor NEUROLOGICAL: cranial nerve function from 2-12 intact intact, follows commands, speech not dysarthric Assessment/Plan Patient is 75 years old male with past medical history of hypertension, aortic valve replacement, type 2 diabetes, thrombocytopenia, atrial fibrillation, pacemaker presented to hospital with fever and chills. According to his patient developed generalized weakness with fever yesterday night associated with rigors and abdominal pain. Patient reported abdominal pain in the left lower quadrant. He denies any diarrhea or dysuria. Patient did not have nausea or vomiting. In ER patient was found fever over 101.2 elevated lactic acid of 2.8, leukocytes count 7.6, sedimentation rate of 58, platelet count of 52, CPK 999, creatinine 3, troponin 0.16, BNP 1433. Echo was done and showed ejection fraction of 60 to 65%, no vegetations, high central venous pressure. CT chest showed Cardiomegaly with left atrial and ventricular enlargement, a small pericardial effusion up to 10 mm in thickness and aortic valve surgery with the mild the dilatation of the ascending aorta up to 4.2 cm AP diameter, CT abdomen pelvis showed Inflammatory changes in the pericolonic fat adjacent to the proximal sigmoid near the junction with distal left colon that may reflect diverticulitis no diverticular abscess perforation ascites or free air Problems Acute diverticulitis/sepsis Patient had fever, left lower quadrant abdominal pain, CT shows picture consistent with acute diverticulitis. Abdominal pain resolved. I upgraded his diet. Dr. Caruso changed Zosyn to ampicillin and ceftriaxone day 6 of antibiotic therapy Blood culture came back positive for Enterococcus faecalis. Procalcitonin elevated to 5.7. Negative repeated blood culture. CASSIDY today negative for vegetations, it shows preserved left ventricular (LV) systolic function. Normally functioning aortic bioprosthesis. ID recommended treat him now for presumptive endocarditis with ampicillin and Rocephin until transesophageal echocardiogram. If CASSIDY negative treat him for a minimum of 2 weeks even if CASSIDY is negative. Shortness of breath/GI blood loss anemia/GI bleed Most likely due to anemia secondary to GI bleed most likely related oral target anticoagulation therapy. Status post 1 unit blood transfusion, hemoglobin stable. Follow-up with the GI team in the outpatient settings Oral target anticoagulation on hold for now COPD (chronic obstructive pulmonary disease) Not in acute exacerbation Continue inhalers Thrombocytopenia Most likely secondary to liver cirrhosis Continue to monitor Cirrhosis of liver Follow-up with GI team in the outpatient settings Acute diastolic CHF (congestive heart failure) BNP elevated, CT shows cardiomegaly Echo showed Normal left ventricular (LV) size with mild left ventricular hypertrophy (LVH) and preserved LV systolic function. Septal wall motion abnormality likely due to underlying pacing. overall ejection fraction is preserved and it around 60-65%. Continue Lasix 40 mg IV every 8 hours, his volume status improved. I will add metolazone. Patient developed good urine output for past 24 hours (6) Thoracic aortic aneurysm Follow-up with ultrasound every 6 months (7) Type 2 diabetes mellitus Continue insulin sliding scale HbA1c 7.1 Macrocytic anemia B12, folate within normal limit iron studies showed low iron There is concern for MDS, follow-up with advertising copy writer in the outpatient settings MIGNON Secondary to sepsis Improved Continue to monitor Eye itchiness Due to allergic reaction Claritin VS,Fishbone, I+O VS, Fishbone, I+O Laboratory Tests 03/17/21 06:46 Vital Signs Date Time Temp Pulse Resp B/P (MAP) Pulse Ox O2 Delivery O2 Flow Rate FiO2 03/17/21 06:00 97.9 93 18 119/89 (99) 94 Room Air 03/14/21 06:00 2.0 I&O- Last 24 Hours up to 6 AM 03/17/21 06:00 Intake Total 1390 ml Output Total 4050 ml Balance -2660 ml REGLA JONES DO Mar 17, 2021 12:34
[2021-03-17] MEDS ORDERED: guaiFENesin SYRUP 200 MG/10 ML UDC PO PRN (12:40)
[2021-03-17] MEDS: CEPACOL LOZENGE PO PRN ×2 (12:49→22:16)
[2021-03-17] MEDS: IPRATROPIUM 0.5MG/ALBUTEROL 2.5MG INH SOL UD 3ML (DUONEB) NEB PRN ×2 (13:58→21:11)
[2021-03-17 14:00] VITALS: BP 137/76
[2021-03-17] MEDS ORDERED: LORATADINE 5 MG HALF-TAB PO ONE (14:00)
[2021-03-17] MEDS ORDERED: LIDOCAINE 1% MDV 20ML VIAL As Ordered ONE (15:23)
[2021-03-17] MEDS: FLUTICASONE PROP 0.05% NASAL SPRAY 16 GM (FLONASE) NARES SCH ×2 (16:30→21:26)
[2021-03-17] MEDS ORDERED: SODIUM CHLORIDE 0.9% INJ 10 ML SYR IV PRN (16:55)
[2021-03-17] MEDS: SODIUM CHLORIDE 0.9% INJ 10 ML SYR IV SCH (18:48)
[2021-03-17] MEDS: MIRTAZAPINE 15 MG TAB PO SCH (21:26)
[2021-03-17] MEDS: **NOTE PATIENT COMMENT** MISC XX SCH (21:27)
[2021-03-17 22:00] VITALS: BP 164/85
[2021-03-18] MEDS: AMPICILLIN SOD 2 GM in D5W MINI-BAG PLUS 100 ML IV SCH ×2 (04:54→10:25)
[2021-03-18] MEDS: SODIUM CHLORIDE 0.9% INJ 10 ML SYR IV SCH (05:48)
[2021-03-18] MEDS: METOPROLOL TART 25 MG TABLET PO SCH ×2 (05:50→14:33)
[2021-03-18 06:00] VITALS: BP 157/65
[2021-03-18 06:38] LABS: BASO % 0.2 % (0.0-1.0); EOS % 0.9 % (0.0-3.0); HEMATOCRIT 28.8 % (42.0-52.0); HEMOGLOBIN 9.5 g/dl (13.5-17.5); LYMPH # 0.8 10^3/uL (1.5-5.0); LYMPH % 19.2 % (24.0-44.0); MEAN CORPUSCULAR HEMOGLOBIN 35.2 pg (27.0-33.0); MEAN CORPUSCULAR VOLUME 106.7 fl (80.0-96.0); MONO # 0.3 10^3/uL (0.0-0.8); NEUTROPHILS % 71.2 % (36.0-66.0); WHITE BLOOD COUNT 4.3 10^3/uL (4.0-10.0)
[2021-03-18 06:40] LABS: PLATELET COUNT, AUTOMATED 59 10^3/uL (150-450)
[2021-03-18 07:00] LABS: ALBUMIN 2.8 GM/DL (3.2-5.2); BILIRUBIN,TOTAL 0.6 MG/DL (0.2-1.0); C REACTIVE PROTEIN QUANTITATIV 1.46 MG/DL (0.00-0.30); CALCIUM LEVEL 8.6 MG/DL (8.8-10.2); CREATININE FOR GFR 1.28 MG/DL (0.70-1.30); GLOMERULAR FILTRATION RATE 58.5 (>42); MAGNESIUM LEVEL 1.8 MG/DL (1.8-2.4); POTASSIUM SERUM 4.1 MEQ/L (3.5-5.1); TOTAL PROTEIN 6.3 GM/DL (6.4-8.2)
[2021-03-18 07:12] LABS: ERYTHROCYTE SEDIMENTATION RATE 63 mm/hr (0-20)
[2021-03-18] MEDS ORDERED: metOLazone 2.5 MG TAB PO SCH (07:30)
[2021-03-18] MEDS: GLYCOPYRROLATE INH SCH (07:49)
[2021-03-18] MEDS: BUDESONIDE INH SCH (07:49)
[2021-03-18] MEDS: FORMOTEROL INH SCH (07:49)
[2021-03-18] MEDS: IPRATROPIUM 0.5MG/ALBUTEROL 2.5MG INH SOL UD 3ML (DUONEB) NEB PRN (07:49)
[2021-03-18] MEDS: TIOTROPIUM INHALER/CAPSULE (SPIRIVA) INH SCH (07:54)
[2021-03-18] MEDS: cefTRIAXone SOD 2 GM in D5W MINI-BAG PLUS 50 ML IV SCH (08:03)
[2021-03-18] MEDS: LIDOCAINE 5% (LIDODERM) PATCH TD SCH (08:03)
[2021-03-18] MEDS: HumaLOG INSULIN (NovoLOG) PER UNIT SC SCH ×2 (08:03→12:08)
[2021-03-18] MEDS: FLUTICASONE PROP 0.05% NASAL SPRAY 16 GM (FLONASE) NARES SCH (08:04)
[2021-03-18] MEDS: FOLIC ACID 1 MG TAB PO SCH (08:04)
[2021-03-18] MEDS: allopurinoL 100 MG TAB PO SCH (08:04)
[2021-03-18] MEDS: POTASSIUM CHLORIDE 10 MEQ SR TABLET PO SCH (08:04)
[2021-03-18] MEDS: IRON POLYSAC (NIFEREX) 150 MG CAP PO SCH (08:04)
[2021-03-18] MEDS: FINASTERIDE 5 MG TAB PO SCH (08:04)
[2021-03-18] MEDS: NYSTATIN 100,000 UNITS/GM TOPICAL PWD 15 GM TOP SCH (08:05)
[2021-03-18] MEDS: FUROSEMIDE 40MG/4ML VIAL (J1940) IV SCH (08:45)
[2021-03-18] MEDS: ACETAMINOPHEN TAB 650MG DOSE (2X325MG) PO PRN (08:45)
[2021-03-18] MEDS ORDERED: LORATADINE 5 MG HALF-TAB PO SCH (09:00)
--- NOTE | 2021-03-18 09:19 | REP ---
INDICATION: bacteremia. COMPARISON: None. TECHNIQUE: The procedure was performed under the direct supervision of Dr. Puente. The risks and benefits of the procedure were explained to the patient and informed consent was obtained. The right basilic vein was localized using ultrasound guidance. The skin was prepped and draped in a sterile fashion. 1 mL of 1% lidocaine was used as a local anesthetic. Using ultrasound guidance the basilic vein was cannulated and a 0.018 guidewire was inserted and advanced to the SVC using fluoroscopic guidance, and last image hold technology. The needle was removed and a 5 Estonian dilator and peel-away sheath was inserted over the guide wire. A 5 Estonian dual lumen catheter was cut to length of 41 cm. The dilator was removed and the catheter was inserted over the guide wire with the tip ending in the SVC. The peel-away sheath was removed and the catheter was flushed with heparinized saline as per Hospital protocol. The catheter was affixed to the skin and a sterile dressing was applied. Estimated blood loss: Less than 1 mL The patient tolerated the procedure well and there were no immediate complications. 0.1 minutes of fluoro time was utilized for this procedure. FINDINGS: None IMPRESSION: PICC line insertion right basilic vein with the tip ending in the SVC. <Electronically signed by Rj Carter > 03/18/21 0806 <Electronically signed by Alexis Puente > 03/18/21 0919
[2021-03-18] MEDS: ENTRESTO 49-51MG TABLET (SACUBITRIL/VALSARTAN) PO SCH (09:43)
[2021-03-18] MEDS: TERAZOSIN 5MG CAPSULE PO SCH (09:44)
--- NOTE | 2021-03-18 10:15 | IPN ---
INFECTIOUS DISEASE PROGRESS NOTE DATE: 03/17/2021 SUBJECTIVE: Michi seems to be doing very well. He is anxious to go home. He has had no fever or chills. No nausea, vomiting or diarrhea. No abdominal pain. He did complain of some puffiness around his eyelids. His shortness of breath has improved. PHYSICAL EXAMINATION: HEART: Irregularly irregular. Systolic ejection murmur 1/6. LUNGS: Diminished breath sounds at the bases bilaterally. ABDOMEN: Obese, soft, nontender. EXTREMITIES: 1+ pitting edema bilaterally. SKIN: Hyperpigmented venous stasis on lower extremities. NEUROLOGIC EXAM: Normal. LABORATORY DATA: White count 4.3, hemoglobin 11.1, hematocrit 32.6, platelets 62, 83% neutrophils, 11% lymphocytes, 4% monocytes. Erythrocyte sedimentation rate (ESR) 71. Sodium 139, potassium 4.1, chloride 104, bicarbonate 27, BUN 27, creatinine 1.36, glucose 223, calcium 8.9, magnesium 1.7. Bilirubin 0.8, AST 151, ALT 63. BNP 1936. Methicillin-resistant Staphylococcus aureus (MRSA) screen was negative. Blood cultures were positive times two sets on 03/12/2021 and negative on 03/13/2021. Transesophageal echocardiogram done by Dr. Sanchez on 03/16/2021 showed very small, very bright echodensity on one of the pacemaker leads, most likely representing a small calcified thrombus, much less likely vegetation, intact atrial septum, no left atrial thrombus and normal left and right pulmonary vein throw. MEDICATIONS: - intravenous (IV) ampicillin and Rocephin for synergy for possible Enterococcus (E) faecalis endocarditis, currently day #4. IMPRESSION: 1. Enterococcus (E) faecalis bacteremia without evidence of endocarditis on the transesophageal echocardiogram (CASSIDY). 2. Possible diverticulitis, left lower quadrant, around the sigmoid, although patient had minimal left lower quadrant pain. There was no abscess formation or free air. Could have been the source of this bacteremia, rather than endocarditis. The patient will be treated for presumptive endocarditis. 3. Alcoholic liver cirrhosis with thrombocytopenia. Patient was advised to discontinue drinking. 4. Atrial fibrillation. Patient considering having a Watchman procedure. PLAN: Patient will continue with IV ampicillin 12 grams every 24 hours and Rocephin 2 grams every 12 hours for a total of two weeks. The patient will end antibiotics on March 28, 2021. They are going to be removed. Blood cultures will be repeated on April 04, 2021, to make sure he does not have any recurrence before the Watchman procedure is done. Antibiotics have been written and given to Patient and Family Services (PFS) worker, Mesfin Covarrubias, to call [employer] for teaching of patient and his . 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 Will also call his member certification manager, Dr. Ramsey Hernandez and Dr. Rendon at [facility] in [place] to discuss his hospital admission. Telephone number .
[2021-03-18] MEDS ORDERED: ELIQ2.5T PO (13:31)
[2021-03-18] MEDS ORDERED: CLAR10TA7 PO (13:31)
[2021-03-18 14:33] VITALS: BP 123/84
--- NOTE | 2021-03-18 16:13 | DS.PDOC ---
Discharge Summary General Date of Admission Mar 12, 2021 at 15:36 Date of Discharge 03/18/21 Discharge Summary PROCEDURES PERFORMED DURING STAY: [None]. ADMITTING DIAGNOSES: Acute diverticulitis/sepsis Shortness of breath/GI blood loss anemia/GI bleed Thrombocytopenia COPD (chronic obstructive pulmonary disease) Thoracic aortic aneurysm Acute diastolic CHF (congestive heart failure) Cirrhosis of liver Macrocytic anemia MIGNON Eye itchiness DISCHARGE DIAGNOSES: Acute diverticulitis/sepsis Shortness of breath/GI blood loss anemia/GI bleed Thrombocytopenia COPD (chronic obstructive pulmonary disease) Thoracic aortic aneurysm Acute diastolic CHF (congestive heart failure) Cirrhosis of liver Macrocytic anemia MIGNON Eye itchiness COMPLICATIONS/CHIEF COMPLAINT: Acute Diverticulitis. HISTORY OF PRESENT ILLNESS: Patient is 75 years old male with past medical history of hypertension, aortic valve replacement, type 2 diabetes, thrombocytopenia, atrial fibrillation, pacemaker presented to hospital with fever and chills. According to his patient developed generalized weakness with fever yesterday night associated with rigors and abdominal pain. Patient reported abdominal pain in the left lower quadrant. He denies any diarrhea or dysuria. Patient did not have nausea or vomiting. In ER patient was found fever over 101.2 elevated lactic acid of 2.8, leukocytes count 7.6, sedimentation rate of 58, platelet count of 52, CPK 999, creatinine 3, troponin 0.16, BNP 1433. Echo was done and showed ejection fraction of 60 to 65%, no ve getations, high central venous pressure. CT chest showed Cardiomegaly with left atrial and ventricular enlargement, a small pericardial effusion up to 10 mm in thickness and aortic valve surgery with the mild the dilatation of the ascending aorta up to 4.2 cm AP diameter, CT abdomen pelvis showed Inflammatory changes in the pericolonic fat adjacent to the proximal sigmoid near the junction with d istal left colon that may reflect diverticulitis no diverticular abscess perforation ascites or free air HOSPITAL COURSE: During the hospital stay the following is addressed Acute diverticulitis/sepsis Patient had fever, left lower quadrant abdominal pain, CT shows picture consistent with acute diverticulitis. Blood culture came back positive for Enterococcus faecalis. Dr. Caruso changed Zosyn to ampicillin and ceftriaxone CASSIDY today negative for vegetations, it shows preserved left ventricular (LV) systolic function. Normally functioning aortic bioprosthesis. ID recommended treat him for 2 weeks with antibiotic therapy Shortness of breath/GI blood loss anemia/GI bleed Most likely due to anemia secondary to GI bleed most likely related oral target anticoagulation therapy. Status post 1 unit blood transfusion, hemoglobin stable. Follow-up with the GI team in the outpatient settings Oral target anticoagulation on hold for now COPD (chronic obstructive pulmonary disease) Not in acute exacerbation Continue inhalers Thrombocytopenia Most likely secondary to liver cirrhosis Continue to monitor Acute diastolic CHF (congestive heart failure) BNP elevated, CT shows cardiomegaly Echo showed Normal left ventricular (LV) size with mild left ventricular hypert rophy (LVH) and preserved LV systolic function. Septal wall motion abnormality likely due to underlying pacing. overall ejection fraction is preserved and it around 60-65%. Patient received diuresis with IV Lasix (6) Thoracic aortic aneurysm Follow-up with ultrasound every 6 months (7) Type 2 diabetes mellitus Continue insulin sliding scale HbA1c 7.1 Macrocytic anemia B12, folate within normal limit iron studies showed low iron There is concern for MDS, follow-up with slubber runner in the outpatient settings MIGNON Secondary to sepsis Improved Continue to monitor Eye itchiness Due to allergic reaction Claritin DISCHARGE MEDICATIONS: Please see below. ALLERGIES: Please see below. PHYSICAL EXAMINATION ON DISCHARGE: VITAL SIGNS: Please see below. GENERAL APPEARANCE: Obese male HEENT: no scleral icterus, plus JVD, EOMI CARDIOVASCULAR: Irregularly irregular LUNGS: Diminished lung sounds bilaterally ABDOMEN: soft & not tender w palpitation MUSCULOSKELETAL: no cyanosis, +1 lower extremity edema INTEGUMENT: no generalized pallor NEUROLOGICAL: cranial nerve function from 2-12 intact intact, follows commands, speech not dysarthric LABORATORY DATA: Please see below. IMAGING: See above PROGNOSIS: Fair ACTIVITY: [As tolerated]. DIET: Cardiac DISPOSITION: 01 Home, Self-Care. DISCHARGE INSTRUCTIONS: Continue antibiotic therapy IV as recommended Follow-up with maintenance superintendent and PCP Patient will continue with IV ampicillin 12 grams every 24 hours and Rocephin 2 grams every 12 hours for a total of two weeks. The patient will end antibiotics on March 28, 2021. They are going to be removed. Blood cultures will be repeated on April 04, 2021, to make sure he does not have any recurrence before the Watchman procedure is done. Antibiotics have been written and given to Patient and Family Services (PFS) worker, Mesfin Covarrubias, to call [employer] for teaching of patient and his F/u with GI team , resume Eliquis in 2 days ITEMS TO FOLLOWUP ON ON OUTPATIENT: Follow-up with maintenance superintendent, and PCP DISCHARGE CONDITION: [Stable]. TIME SPENT ON DISCHARGE: 40 minutes. Vital Signs/I&Os Vital Signs Date Time Temp Pulse Resp B/P (MAP) Pulse Ox O2 Delivery O2 Flow Rate FiO2 03/18/21 14:33 93 123/84 03/18/21 06:00 97.5 18 98 Room Air 03/14/21 06:00 2.0 I&O- Last 24 Hours up to 6 AM 03/18/21 06:00 Intake Total 1146 ml Output Total 1250 ml Balance -104 ml Laboratory Data Labs 24H Laboratory Tests 2 03/17/21 17:10: Bedside Glucose (Misc Panel) 215H 03/17/21 19:57: Bedside Glucose (Misc Panel) 197H 03/18/21 06:18: Immature Granulocyte % (Auto) 0.5, Neutrophils (%) (Auto) 71.2H, Lymphocytes (%) (Auto) 19.2L, Monocytes (%) (Auto) 8.0, Eosinophils (%) (Auto) 0.9, Basophils (%) (Auto) 0.2, Neutrophils # (Auto) 3.0, Lymphocytes # (Auto) 0.8L, Monocytes # (Auto) 0.3, Eosinophils # (Auto) 0.0, Basophils # (Auto) 0.0, Nucleated Red Blood Cells % (auto) 0.0, Erythrocyte Sedimentation Rate 63H, Anion Gap 4L, Glomerular Filtration Rate 58.5, Calcium Level 8.6L, Magnesium Level 1.8, Total Bilirubin 0.6, Aspartate Amino Transf (AST/SGOT) 126H, Alanine Aminotransferase (ALT/SGPT) 75, Alkaline Phosphatase 63, C-Reactive Protein, Quantitative 1.46H, Total Protein 6.3L, Albumin 2.8L, Albumin/Globulin Ratio 0.8 03/18/21 11:54: Bedside Glucose (Misc Panel) 150H CBC/BMP Laboratory Tests 03/18/21 06:18 FSBS Laboratory Tests Test 03/17/21 17:10 03/17/21 19:57 03/18/21 11:54 Range/Units Bedside Glucose (Misc Panel) 215 197 150 83-110 MG/DL Microbiology Microbiology 03/15/21 Stool Occult Blood (MACKENZIE) - Final, Complete 03/13/21 Blood Culture - Final, Complete NO GROWTH AFTER 5 DAYS 03/13/21 Blood Culture - Final, Complete NO GROWTH AFTER 5 DAYS 03/12/21 Blood Culture - Final, Complete Enterococcus Faecalis 03/12/21 Blood Culture - Final, Complete Enterococcus Faecalis Discharge Medications Scheduled Allopurinol (Allopurinol) 100 Mg Tablet, 100 MG PO DAILY, (Reported) Apixaban (Eliquis) 2.5 Mg Tablet, 2.5 MG PO BID Budesonide/Glycopyr/Formoterol (Breztri Aerosphere Inhaler) 160 Mcg-9 Mcg-4.8 Mcg/Actuation Hfa.aer.ad, 1 PUFF INH BID, (Reported) Finasteride (Finasteride) 5 Mg Tablet, 5 MG PO DAILY, (Reported) Folic Acid (Folic Acid) 1 Mg Tab, 1 MG PO DAILY, (Reported) Furosemide (Furosemide) 80 Mg Tablet, 80 MG PO BID, (Reported) Gabapentin (Gabapentin) 400 Mg Capsule, 400 MG PO BID, (Reported) Metolazone (Metolazone) 2.5 Mg Tablet, 2.5 MG PO 1XWK, (Reported) FRIDAYS Metoprolol Succinate (Metoprolol Succinate) 25 Mg Tab.er.24h, 75 MG PO DAILY, (Reported) Mirtazapine (Mirtazapine) 15 Mg Tab.rapdis, 15 MG PO QHS, (Reported) Mv-Min/Folic/Vit K/Lycop/Coq10 (Daily Multivitamin Capsule) 1 Each Capsule, 1 CAP PO DAILY, (Reported) Potassium Chloride (Potassium Chloride) 20 Meq Tab.er.prt, 10 MEQ PO DAILY, (Reported) Sacubitril/Valsartan (Entresto 49 mg-51 mg Tablet) 1 Each Tablet, 1 TAB PO BID, (Reported) Terazosin Hcl (Terazosin HCl) 10 Mg Capsule, 20 MG PO DAILY, (Reported) Scheduled PRN Acetaminophen (Acetaminophen) 500 Mg Tablet, 1,000 MG PO TID PRN for PAIN LEVEL 1-6, (Reported) Albuterol Sulfate (Proair Hfa) 8.5 Gm Hfa.aer.ad, 2 PUFF INH Q4H PRN for SOB/WHEEZING, (Reported) Ipratropium/Albuterol Sulfate (Iprat-Albut 0.5-3(2.5) mg/3 ml) 3 Ml Ampul.neb, 1 VIAL NEB QID PRN for SOB/WHEEZING, (Reported) Loratadine (Claritin) 10 Mg Tablet, 5 MG PO DAILY PRN for allergy Simethicone (Simethicone) 80 Mg Tab.chew, 80 MG PO Q6H PRN for GAS PAIN, (Reported) Tramadol HCl (Tramadol HCl) 50 Mg Tablet, 50 MG PO BID PRN for PAIN LEVEL 5-10, (Reported) Allergies Coded Allergies: No Known Allergies (Unverified , 02/27/18) REGLA JONES DO Mar 18, 2021 16:13
[2022-03-17] MEDS ORDERED: LORATADINE 5 MG HALF-TAB PO SCH (14:00)
== END 2021-03-18 15:00 | disposition home or self-care (01) | DRG 871 ==
LOC: M ED 07:05 → M ED INP 15:36 → ENRESERV 15:57 → M MSPAV 17:51
PROVIDERS: ADMIT Internal Medicine; ATTEND Internal Medicine
PROC: B246ZZ4 Ultrasonography of Right and Left Heart, Transesophageal (ICD-10-PCS; 2021-03-16)
PROC: 30233N1 Transfusion of Nonautologous Red Blood Cells into Peripheral Vein, Percutaneous Approach (ICD-10-PCS; principal; 2021-03-16 17:30)
PROC: 02HV33Z Insertion of Infusion Device into Superior Vena Cava, Percutaneous Approach (ICD-10-PCS; 2021-03-17)
DX: A41.81 Sepsis due to Enterococcus (principal); I50.31 Acute diastolic (congestive) heart failure; K57.32 Diverticulitis of large intestine without perforation or abscess without bleeding; N17.9 Acute kidney failure, unspecified; K76.6 Portal hypertension; J44.9 Chronic obstructive pulmonary disease, unspecified; K70.30 Alcoholic cirrhosis of liver without ascites; D69.59 Other secondary thrombocytopenia; E11.22 Type 2 diabetes mellitus with diabetic chronic kidney disease; D46.9 Myelodysplastic syndrome, unspecified; D53.9 Nutritional anemia, unspecified; I11.0 Hypertensive heart disease with heart failure; Z95.2 Presence of prosthetic heart valve; Z95.0 Presence of cardiac pacemaker; Z79.899 Other long term (current) drug therapy; Z96.642 Presence of left artificial hip joint; M10.9 Gout, unspecified; I71.2 Thoracic aortic aneurysm, without rupture

== ENCOUNTER → 2021-03-24 | Outpatient (CLI) | payer MEDICARE ==
[~2021-03-24] MED LIST changes: +ACET-683 PO; +ALLO100T PO; +ASPI81CH33 PO; +BUDE10.2 INH; +BUDE10.7 INH; +CARDCAP3 PO; +CLAR10TA7 PO; +ELIQ2.5T PO; +ENTR1TAB7 PO; +FINA5TAB2 PO; +FURO80TA2 PO; +GABA-283 PO; +IPRA0.00 NEB; +IPRA2IN NEB; +KLOR20TA42 PO; +METO1TAB32 PO; +METO25TA PO; +MIRT1TAB15 PO; +MIRT1TAB16 PO; +POTA20TA6 PO; +PROAAER10 INH; +SIME80CH5 PO; +TERA10CA3 PO; +TRAM50TA2 PO
[2021-03-24 17:36] LABS: BASO % 0.4 % (0.0-1.0); EOS # 0.1 10^3/uL (0.0-0.5); EOS % 2.4 % (0.0-3.0); HEMOGLOBIN 10.1 g/dl (13.5-17.5); LYMPH # 1.1 10^3/uL (1.5-5.0); LYMPH % 19.2 % (24.0-44.0); MEAN CORPUSCULAR HEMOGLOBIN 35.4 pg (27.0-33.0); MEAN CORPUSCULAR HGB CONC 32.6 g/dl (32.0-36.5); MEAN CORPUSCULAR VOLUME 108.8 fl (80.0-96.0); MONO # 0.5 10^3/uL (0.0-0.8); MONO % 9.1 % (2.0-8.0); NEUTROPHILS # 3.8 10^3/uL (1.5-8.5); NEUTROPHILS % 68.4 % (36.0-66.0); RED BLOOD COUNT 2.85 10^6/uL (4.30-6.10); WHITE BLOOD COUNT 5.5 10^3/uL (4.0-10.0)
[2021-03-24 18:00] LABS: ALBUMIN 2.9 GM/DL (3.2-5.2); BILIRUBIN,TOTAL 0.4 MG/DL (0.2-1.0); C REACTIVE PROTEIN QUANTITATIV 2.12 MG/DL (0.00-0.30); CALCIUM LEVEL 9.3 MG/DL (8.8-10.2); CREATININE FOR GFR 2.27 MG/DL (0.70-1.30); GLOMERULAR FILTRATION RATE 30.2 (>42); POTASSIUM SERUM 3.5 MEQ/L (3.5-5.1); TOTAL PROTEIN 6.8 GM/DL (6.4-8.2)
[2021-03-24 18:52] LABS: PLATELET COUNT, AUTOMATED 82 10^3/uL (150-450)
[2021-03-24 19:22] LABS: ERYTHROCYTE SEDIMENTATION RATE 61 mm/hr (0-20)
== END ==
LOC: M PLALAB 14:26
PROVIDERS: ATTEND Internal Medicine Infectious Disease
DX: A41.81 Sepsis due to Enterococcus (principal); B95.2 Enterococcus as the cause of diseases classified elsewhere
CPT/HCPCS: 36415; 80053; 85025; 85049; 85055; 85652; 86140; G0463